=== PATIENT | female | born 1960 | race Caucasian/White ===

== ENCOUNTER 2023-04-02 10:58 | Outpatient (AMB) | payer BC, SELFPAY ==
--- NOTE | 2023-04-02 11:05 | MHC.OFFVIS ---
Intake Vital Signs 04/02/23 11:06 Height 5 ft 4 in Weight 226 lb 10.163 oz BMI 38.9 BP 124/78 Blood Pressure Location Rt brachial Position Sitting Pulse 67 Pulse Source Pulse Oximeter Temp 97.9 F Temp Source Skin Pulse Oximetry (%) 97 Intake Visit Reasons: Arthritis Intake Note: New pt presents today for consult. Previously seen by G. Was taking xeljanz but ran out some time in January. Needs new rx Clinical Appeals Auditor Required: No Accompanied by: Spouse Alexander Allergies etanercept [From Enbrel] Adverse Reaction (Intermediate, Verified 04/02/23 11:08) Depression Latex, Natural Rubber Adverse Reaction (Intermediate, Verified 04/02/23 11:08) Rash Medication List - Last Reconciled 04/02/23 by Fredrick Hill MD acetaminophen (Tylenol Extra Strength) 500 mg PO Q6H PRN tofacitinib (Xeljanz) 5 mg PO BID HPI HPI Comments History of Present Illness Details This is a 62-year-old female with a past medical history of seropositive rheumatoid arthritis who presents as a new patient. Her previous before school babysitter left the practice. Patient had been on Xeljanz since 2017 with good control of her RA. She was last prescribed Xeljanz about 10 months ago. Patient did not take Xeljanz since November of 2022 and had been using only 1 tablet daily for a few months before that. She is having recurring pain swelling and stiffness in her hands and wrists as well as her ankles. She has history of right breast cancer diagnosed 1999, she had a right mastectomy followed by chemotherapy, she also took another medication for 5 years. As far as she knows she is breast cancer free. She gets regular mammograms and they have been unremarkable. She states that she has had a right upper extremity deformity since do to a injury [facility] Medical History (Updated 04/02/23 @ 11:46 by Fredrick Hill MD) Anemia Cervical radiculopathy Disorder of rotator cuff Inflammatory polyarthropathy Localized primary osteoarthritis Primary malignant neoplasm of female breast Sleep disorder Surgical History History of lumbar fusion Family History Mother Arthritis Diabetes Brother Rheumatoid arthritis Coronary arteriosclerosis Father Prostate cancer Sister Cellulitis Social History Household Members: None Alcohol intake: current Alcohol intake frequency: holidays/special occasions only Patient Tobacco Use Status: Never used Tobacco Current occupational status: employed 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 Female Reproductive History Menstrual Total pregnancies: 2 Number of Living Children: 2 Review of Systems GI Reports constipation Musc Reports arthralgias, Reports joint swelling and Reports stiffness Physical Exam Vital Signs: Last Vital Signs Temp 97.9 F 04/02/23 11:06 Pulse 67 04/02/23 11:06 BP 124/78 04/02/23 11:06 Pulse Ox 97 04/02/23 11:06 BMI result Body Mass Index 38.9 Const General: cooperative, healthy appearing and comfortable Nutritional Appearance: obese morbidly obese Orientation/consciousness: patient oriented x3 Limitations: no limitations HEENT Head: Yes normocephalic and Yes atraumatic Resp Effort & Inspection: normal respiratory effort and able to speak in complete sentences Auscultation: clear to auscultation bilaterally Cardio Rate: regular rate Rhythm: regular rhythm Skin General skin exam: no rashes or lesions noted Neuro General: patient oriented x3 Extrem Other: Deformity and limited range of motion of her right shoulder, right elbow contracture. Right wrist tenderness and pain with full flexion and extension . Limited wrist extension Left wrist tenderness to palpation Diffuse finger puffiness without tenderness Left lateral ankle tenderness Assessment & Plan Assessment & Plan (1) Seropositive rheumatoid arthritis: Comment: RF + CCP + dx 2011 MTX + HCQ 2011 Relapsed in 10/2015 SSZ added without improvement LEF + MTX 2016 partially effective Enbrel 05/2017 effective. Stopped due to severe depression 2017 Xeljanz 07/2018 effective Code(s): M05.9 - Rheumatoid arthritis with rheumatoid factor, unspecified Plan: This is a 62-year-old female with seropositive rheumatoid arthritis who presents as a new patient. Her previous before school babysitter left the practice. Patient's rheumatoid arthritis was well controlled on Xeljanz since 2018. She ran out of Xeljanz as her before school babysitter left the practice. Today patient is having multiple joints with synovitis. Need to restart Xeljanz. Will start prior authorization for Xeljanz 5 mg Twice daily Check labs today and before next visit in 3 months (2) High risk medication use: Code(s): Z79.899 - Other termite treater helper (current) drug therapy Plan: Discussed the black box warning of Xeljanz. Discussed the mildly increased risks of malignancy and cardiovascular events with Xeljanz. Patient is aware of the risk and agrees to proceed. Will continue with Xeljanz Plan I spent 47 minutes reviewing patient's chart, evaluating patient, ordering diagnostic workup, counseling patient and documenting in the chart Orders: Orders Comprehensive Met. Panel Today M05.9 - Rheumatoid arthritis with rheumatoid factor, unspecified C Reactive Protein Today M05.9 - Rheumatoid arthritis with rheumatoid factor, unspecified Lipid Panel Today E78.5 - Hyperlipidemia, unspecified Complete Blood Count Auto Diff Today M05.9 - Rheumatoid arthritis with rheumatoid factor, unspecified Erythrocyte Sedimentation Rate Today M05.9 - Rheumatoid arthritis with rheumatoid factor, unspecified Immunofixation Pnl, Serum Today M05.9 - Rheumatoid arthritis with rheumatoid factor, unspecified Protein Electrophoresis, Serum Today M05.9 - Rheumatoid arthritis with rheumatoid factor, unspecified Hepatitis A,B,C Profile Today Z11.59 - Encounter for screening for other viral diseases T Spot TB Today Z11.7 - Encounter for testing for latent tuberculosis infection Comprehensive Met. Panel 3 Months M05.9 - Rheumatoid arthritis with rheumatoid factor, unspecified C Reactive Protein 3 Months M05.9 - Rheumatoid arthritis with rheumatoid factor, unspecified Complete Blood Count Auto Diff 3 Months M05.9 - Rheumatoid arthritis with rheumatoid factor, unspecified Erythrocyte Sedimentation Rate 3 Months M05.9 - Rheumatoid arthritis with rheumatoid factor, unspecified Coding Level of Care Code New Pt Level 4 (73550) Diagnoses Seropositive rheumatoid arthritis M05.9 High risk medication use Z79.899
[2023-04-02 11:06] VITALS: BP 124/78; PULSE 67; TEMP 36.6; O2SAT 97; BMI 38.9
== END 2023-04-02 11:38 | disposition home or self-care (01) ==
PROVIDERS: Visit Provider Student in an Organized Health Care Education/Training Program
DX: M05.79 Rheumatoid arthritis with rheumatoid factor of multiple sites without organ or systems involvement (principal); Z79.899 Other long term (current) drug therapy
CPT/HCPCS: 99204

== ENCOUNTER → 2023-04-02 10:58 | Outpatient (BNVA) | payer SELFPAY | PROVIDERS: Visit Provider Student in an Organized Health Care Education/Training Program ==

== ENCOUNTER 2023-06-19 09:59 | Outpatient (AMB) | payer BC, SELFPAY ==
[2023-06-19 10:30] VITALS: BP 122/76; PULSE 87; TEMP 36.6; O2SAT 97; BMI 38.4
--- NOTE | 2023-06-19 10:30 | MHC.OFFVIS ---
Intake Vital Signs 06/19/23 10:30 Height 5 ft 4 in Weight 223 lb 8.78 oz BMI 38.4 BP 122/76 Blood Pressure Location Rt brachial Position Sitting Pulse 87 Pulse Source Pulse Oximeter Temp 97.9 F Temp Source Skin Pulse Oximetry (%) 97 Intake Visit Reasons: RA Intake Note: Pt seen today for RA follow up and test results. States arthritis is getting bad. Reports neurosurgeon Dr Jie Franz in [facility] mentioned arthritis in her back. She c/o low back pain Care Giver Required: No Accompanied by: Self / Same As Patient Allergies etanercept [From Enbrel] Adverse Reaction (Intermediate, Verified 06/19/23 10:32) Depression Latex, Natural Rubber Adverse Reaction (Intermediate, Verified 06/19/23 10:32) Rash Medication List - Last Reconciled 06/19/23 by Fredrick Hill MD acetaminophen (Tylenol Extra Strength) 500 mg PO Q6H PRN Xeljanz (tofacitinib) 5 mg PO BID NS HPI HPI Comments History of Present Illness Details 62-year-old female with seropositive RA returns for follow-up. Xeljanz was recently approved but patient has not started it yet. She states that she gets it through a pharmacy through her employer called [employer] she continues to have multiple joint pain especially in her left hand and wrist. Initial history: This is a 62-year-old female with a past medical history of seropositive rheumatoid arthritis who presents as a new patient. Her previous software development project manager left the practice. Patient had been on Xeljanz since 2018 with good control of her RA. She was last prescribed Xeljanz about 10 months ago. Patient did not take Xeljanz since November of 2022 and had been using only 1 tablet daily for a few months before that. She is having recurring pain swelling and stiffness in her hands and wrists as well as her ankles. She has history of right breast cancer diagnosed 1999, she had a right mastectomy followed by chemotherapy, she also took another medication for 5 years. As far as she knows she is breast cancer free. She gets regular mammograms and they have been unremarkable. She states that she has had a right upper extremity deformity since do to a injury [facility] Medical History Disorder of rotator cuff Sleep disorder Cervical radiculopathy Localized primary osteoarthritis Inflammatory polyarthropathy Primary malignant neoplasm of female breast Anemia Surgical History H/O mastectomy History of lumbar fusion Family History Mother Arthritis Diabetes Brother Rheumatoid arthritis Coronary arteriosclerosis Father Prostate cancer Sister Cellulitis Social History Household Members: None Alcohol intake: current Alcohol intake frequency: holidays/special occasions only Patient Tobacco Use Status: Never used Tobacco Current occupational status: employed 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 Review of Systems Musc Reports arthralgias, Reports joint swelling and Reports stiffness Physical Exam Vital Signs: Last Vital Signs Temp 97.9 F 06/19/23 10:30 Pulse 87 06/19/23 10:30 BP 122/76 06/19/23 10:30 Pulse Ox 97 06/19/23 10:30 BMI result Body Mass Index 38.4 Const General: cooperative, healthy appearing and comfortable Nutritional Appearance: obese morbidly obese Orientation/consciousness: patient oriented x3 Limitations: no limitations HEENT Head: Yes normocephalic and Yes atraumatic Resp Effort & Inspection: normal respiratory effort and able to speak in complete sentences Cardio Rate: regular rate Rhythm: regular rhythm Skin General skin exam: no rashes or lesions noted Neuro General: patient oriented x3 Extrem Other: Deformity and limited range of motion of her right shoulder, right elbow contracture. Right wrist tenderness and pain with full flexion and extension . Limited wrist extension Left wrist swelling and tenderness to palpation Diffuse finger puffiness without tenderness Left lateral ankle tenderness Assessment & Plan Assessment & Plan (1) Seropositive rheumatoid arthritis: Comment: RF + CCP + dx 2011 MTX + HCQ 2011 Relapsed in 10/2015 SSZ added without improvement LEF + MTX 2016 partially effective Enbrel 05/2017 effective. Stopped due to severe depression 2017 Xeljanz 07/2018 effective Code(s): M05.9 - Rheumatoid arthritis with rheumatoid factor, unspecified Plan: This is a 62-year-old female with seropositive rheumatoid arthritis who presents as a new patient. Her previous software development project manager left the practice. Patient's rheumatoid arthritis was well controlled on Xeljanz since 2018. She ran out of Xeljanz as her software development project manager left the practice. Today patient is having multiple joints with synovitis. Xeljanz was just approved. Advised patient to start Xeljanz as soon as possible. Infectious screening: Hepatitis panel and T spot -ve 2022 Follow-up in 4 months (2) High risk medication use: Code(s): Z79.899 - Other group home (current) drug therapy Plan: Discussed the black box warning of Xeljanz. Discussed the mildly increased risks of malignancy and cardiovascular events with Xeljanz. Patient is aware of the risk and agrees to proceed. Will continue with Xeljanz Plan I spent 27 minutes reviewing patient's chart, evaluating patient, counseling patient and documenting in the chart Medications: Changed From tofacitinib (Xeljanz) 5 mg PO BID 60 tabs 2RF To Xeljanz (tofacitinib) 5 mg PO BID 60 tabs 3RF NS Coding Level of Care Code Est Pt Level 4 (17022) Diagnoses Seropositive rheumatoid arthritis M05.9 High risk medication use Z79.899
== END 2023-06-19 11:08 | disposition home or self-care (01) ==
LOC: HO.RHE 09:59
PROVIDERS: Visit Provider Student in an Organized Health Care Education/Training Program
DX: M05.79 Rheumatoid arthritis with rheumatoid factor of multiple sites without organ or systems involvement (principal); Z79.622 Long term (current) use of Janus kinase inhibitor
CPT/HCPCS: 99214

== ENCOUNTER → 2023-06-19 09:59 | Outpatient (BNVA) | payer BC, SELFPAY | PROVIDERS: Visit Provider Student in an Organized Health Care Education/Training Program ==

== ENCOUNTER 2023-11-06 09:27 | Outpatient (AMB) | payer BC, SELFPAY ==
--- NOTE | 2023-11-06 09:29 | MHC.OFFVIS ---
Intake Vital Signs 11/06/23 09:30 Height 5 ft 4 in Weight 227 lb 15.327 oz BMI 39.1 BP 132/84 Blood Pressure Location Lt brachial Position Sitting Pulse 96 Pulse Source Pulse Oximeter Intake Visit Reasons: ra Intake Note: Patient last seen 06/19/23 presents today for follow up. Boiling Off Winder Required: No Accompanied by: Self / Same As Patient Allergies etanercept [From Enbrel] Adverse Reaction (Intermediate, Verified 11/06/23 09:31) Depression Latex, Natural Rubber Adverse Reaction (Intermediate, Verified 11/06/23 09:31) Rash Medication List - Last Reconciled 11/06/23 by Fredrick Hill MD acetaminophen (Tylenol Extra Strength) 500 mg PO Q6H PRN tofacitinib (Xeljanz) 5 mg PO DAILY HPI HPI Comments History of Present Illness Details 62-year-old female with seropositive RA returns for follow-up. She has been taking Xeljanz only once daily not twice daily as prescribed. She has been doing very well on 1 tab daily. She took it twice daily a few days when it was very called through the winter. She is doing well today with no complaints. No infections over the fall and winter. She has received the Shingrix vaccine in the past Initial history: This is a 62-year-old female with a past medical history of seropositive rheumatoid arthritis who presents as a new patient. Her previous environmental aide left the practice. Patient had been on Xeljanz since 2018 with good control of her RA. She was last prescribed Xeljanz about 10 months ago. Patient did not take Xeljanz since November of 2022 and had been using only 1 tablet daily for a few months before that. She is having recurring pain swelling and stiffness in her hands and wrists as well as her ankles. She has history of right breast cancer diagnosed 1999, she had a right mastectomy followed by chemotherapy, she also took another medication for 5 years. As far as she knows she is breast cancer free. She gets regular mammograms and they have been unremarkable. She states that she has had a right upper extremity deformity since do to a injury [facility] Medical History Disorder of rotator cuff Sleep disorder Cervical radiculopathy Localized primary osteoarthritis Inflammatory polyarthropathy Primary malignant neoplasm of female breast Anemia Surgical History H/O mastectomy History of lumbar fusion Family History Mother Arthritis Diabetes Brother Rheumatoid arthritis Coronary arteriosclerosis Father Prostate cancer Sister Cellulitis Social History Household Members: None Alcohol intake: current Alcohol intake frequency: holidays/special occasions only Patient Tobacco Use Status: Never used Tobacco Current occupational status: employed 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 Review of Systems Musc Denies arthralgias, Denies joint swelling and Denies stiffness Physical Exam Vital Signs: Last Vital Signs Pulse 96 11/06/23 09:30 BP 132/84 11/06/23 09:30 BMI result Body Mass Index 39.1 Const General: cooperative, healthy appearing and comfortable Nutritional Appearance: obese morbidly obese Orientation/consciousness: patient oriented x3 Limitations: no limitations HEENT Head: Yes normocephalic and Yes atraumatic Resp Effort & Inspection: normal respiratory effort and able to speak in complete sentences Auscultation: clear to auscultation bilaterally Cardio Rate: regular rate Rhythm: regular rhythm Skin General skin exam: no rashes or lesions noted Neuro General: patient oriented x3 Extrem Other: Deformity and limited range of motion of her right shoulder, right elbow contracture. No active synovitis today No tender joints Diffuse finger puffiness without tenderness No ankle tenderness Negative MTP squeeze test bilaterally Assessment & Plan Assessment & Plan (1) Seropositive rheumatoid arthritis: Comment: RF + CCP + dx 2011 MTX + HCQ 2011 Relapsed in 10/2015 SSZ added without improvement LEF + MTX 2016 partially effective Enbrel 05/2017 effective. Stopped due to severe depression 2017 Xeljanz 07/2018 effective Code(s): M05.9 - Rheumatoid arthritis with rheumatoid factor, unspecified Plan: This is a 62-year-old female with seropositive rheumatoid arthritis who presents for follow-up. Doing well. She is on Xeljanz 5 mg once daily. Continue with Xeljanz 5 mg once daily. Infectious screening: Hepatitis panel and T spot -ve 2022 Labs before next visit in 4 months (2) High risk medication use: Code(s): Z79.899 - Other long distance operator (current) drug therapy Plan: Discussed the black box warning of Xeljanz. Discussed the mildly increased risks of malignancy and cardiovascular events with Xeljanz. Patient is aware of the risk. Will continue with Xeljanz Plan I spent 27 minutes reviewing patient's chart, evaluating patient, ordering diagnostic workup, counseling patient and documenting in the chart Orders: Orders Erythrocyte Sedimentation Rate 4 Months M05.9 - Rheumatoid arthritis with rheumatoid factor, unspecified Complete Blood Count Auto Diff 4 Months M05.9 - Rheumatoid arthritis with rheumatoid factor, unspecified Comprehensive Met. Panel 4 Months M05.9 - Rheumatoid arthritis with rheumatoid factor, unspecified C Reactive Protein 4 Months M05.9 - Rheumatoid arthritis with rheumatoid factor, unspecified Medications: Changed From Xeljanz (tofacitinib) 5 mg PO BID 60 tabs 3RF NS To tofacitinib (Xeljanz) 5 mg PO DAILY Coding Level of Care Code Est Pt Level 4 (72414) Diagnoses Seropositive rheumatoid arthritis M05.9 High risk medication use Z79.899
[2023-11-06 09:30] VITALS: BP 132/84; PULSE 96; BMI 39.1
== END 2023-11-06 10:06 | disposition home or self-care (01) ==
PROVIDERS: PCP Family Medicine; Visit Provider Student in an Organized Health Care Education/Training Program
DX: M05.79 Rheumatoid arthritis with rheumatoid factor of multiple sites without organ or systems involvement (principal); Z79.899 Other long term (current) drug therapy
CPT/HCPCS: 99214

== ENCOUNTER → 2023-11-06 09:27 | Outpatient (BNVA) | payer BC, SELFPAY | PROVIDERS: PCP Family Medicine; Visit Provider Student in an Organized Health Care Education/Training Program ==

== ENCOUNTER 2024-03-02 09:02 | Outpatient (AMB) | payer BC, SELFPAY ==
[2024-03-02 09:21] VITALS: BP 138/76; PULSE 81; O2SAT 96; BMI 38.9
--- NOTE | 2024-03-02 09:21 | MHC.OFFVIS ---
Vital Signs 03/02/24 09:21 Height 5 ft 4 in Weight 226 lb 10.163 oz BMI 38.9 BP 138/76 Blood Pressure Location Lt brachial Position Sitting Pulse 81 Pulse Source Pulse Oximeter Pulse Oximetry (%) 96 Oxygen Delivery Method Room Air Intake Visit Reasons: RA/LM Allergies etanercept [From Enbrel] Adverse Reaction (Intermediate, Verified 03/02/24 09:25) Depression Latex, Natural Rubber Adverse Reaction (Intermediate, Verified 03/02/24 09:25) Rash Medication List - Last Reconciled 03/02/24 by Fredrick Hill MD acetaminophen (Tylenol Extra Strength) 500 mg PO Q6H PRN Xeljanz (tofacitinib) 5 mg PO DAILY NS HPI Comments Details: 62-year-old female with seropositive RA returns for follow-up. She is on Xeljanz 5 mg 1 tab daily. She states that her RA is doing well overall. Has not had any joint swelling however been having pain in her right lower back that radiates down her right lower extremity, worse with walking. Patient works in a [employer] and is on her feet for about 8 hours in the day. She has known degenerative disc disease of her spine and she had L-spine surgery in the past. She does home exercises that she learned from PT and is not interested in PT referral. Initial history: This is a 62-year-old female with a past medical history of seropositive rheumatoid arthritis who presents as a new patient. Her previous mileage clerk left the practice. Patient had been on Xeljanz since 2018 with good control of her RA. She was last prescribed Xeljanz about 10 months ago. Patient did not take Xeljanz since November of 2022 and had been using only 1 tablet daily for a few months before that. She is having recurring pain swelling and stiffness in her hands and wrists as well as her ankles. She has history of right breast cancer diagnosed 1999, she had a right mastectomy followed by chemotherapy, she also took another medication for 5 years. As far as she knows she is breast cancer free. She gets regular mammograms and they have been unremarkable. She states that she has had a right upper extremity deformity since do to a injury [facility] Medical History Disorder of rotator cuff Sleep disorder Cervical radiculopathy Localized primary osteoarthritis Inflammatory polyarthropathy Primary malignant neoplasm of female breast Anemia Surgical History H/O mastectomy History of lumbar fusion Family History Mother Arthritis Diabetes Brother Rheumatoid arthritis Coronary arteriosclerosis Father Prostate cancer Sister Cellulitis Social History Household Members: None Alcohol intake: current Alcohol intake frequency: holidays/special occasions only Patient Tobacco Use Status: Never used Tobacco Current occupational status: employed 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 Review of Systems Musc Reports back pain, Denies arthralgias, Denies joint swelling, Reports radiating pain into limb and Denies stiffness Physical Exam Vital Signs: Last Vital Signs Pulse 81 03/02/24 09:21 BP 138/76 03/02/24 09:21 Pulse Ox 96 03/02/24 09:21 Oxygen Delivery Method Room Air 03/02/24 09:21 BMI result Body Mass Index 38.9 Const General: cooperative, healthy appearing and comfortable Nutritional Appearance: obese morbidly obese Orientation/consciousness: patient oriented x3 Limitations: no limitations HEENT Head: Yes normocephalic and Yes atraumatic Resp Effort & Inspection: normal respiratory effort and able to speak in complete sentences Auscultation: clear to auscultation bilaterally Cardio Rate: regular rate Rhythm: regular rhythm Skin General skin exam: no rashes or lesions noted Neuro General: patient oriented x3 Extrem Other: Deformity and limited range of motion of her right shoulder, right elbow contracture. No active synovitis today No tender joints Diffuse finger puffiness without tenderness Bilateral knee crepitus Positive straight leg raise test on the right No ankle tenderness Negative MTP squeeze test bilaterally Assessment & Plan Assessment & Plan (1) Seropositive rheumatoid arthritis: Comment: RF + CCP + dx 2011 MTX + HCQ 2011 Relapsed in 10/2015 SSZ added without improvement LEF + MTX 2016 partially effective Enbrel 05/2017 effective. Stopped due to severe depression 2018 Xeljanz 07/2018 effective Code(s): M05.9 - Rheumatoid arthritis with rheumatoid factor, unspecified Category: Medical Plan: This is a 62-year-old female with seropositive rheumatoid arthritis who presents for follow-up. Doing well. She is on Xeljanz 5 mg once daily. Continue with Xeljanz 5 mg once daily. Infectious screening: Hepatitis panel and T spot -ve 2022 Labs today and before next visit in 4 months (2) High risk medication use: Code(s): Z79.899 - Other group home (current) drug therapy Category: Medical Plan: Discussed the black box warning of Xeljanz. Discussed the mildly increased risks of malignancy and cardiovascular events with Xeljanz. Patient is aware of the risk. Will continue with Xeljanz Plan I spent 27 minutes reviewing patient's chart, evaluating patient, ordering diagnostic workup, counseling patient and documenting in the chart Orders: Orders Complete Blood Count Auto Diff 4 Months M05.9 - Rheumatoid arthritis with rheumatoid factor, unspecified, Z79.899 - Other group home (current) drug therapy Erythrocyte Sedimentation Rate 4 Months M05.9 - Rheumatoid arthritis with rheumatoid factor, unspecified, Z79.899 - Other intermediate card tender (current) drug therapy Comprehensive Met. Panel 4 Months M05.9 - Rheumatoid arthritis with rheumatoid factor, unspecified, Z79.899 - Other intermediate card tender (current) drug therapy C Reactive Protein 4 Months M05.9 - Rheumatoid arthritis with rheumatoid factor, unspecified, Z79.899 - Other group home (current) drug therapy Coding Level of Care Code Est Pt Level 4 (24182) Diagnoses Seropositive rheumatoid arthritis M05.9 High risk medication use Z79.899
== END 2024-03-02 09:44 | disposition home or self-care (01) ==
PROVIDERS: PCP Family Medicine; Visit Provider Student in an Organized Health Care Education/Training Program
DX: M05.79 Rheumatoid arthritis with rheumatoid factor of multiple sites without organ or systems involvement (principal); Z79.899 Other long term (current) drug therapy
CPT/HCPCS: 99214

== ENCOUNTER → 2024-03-02 09:02 | Outpatient (BNVA) | payer BC, SELFPAY | PROVIDERS: PCP Family Medicine; Visit Provider Student in an Organized Health Care Education/Training Program ==

== ENCOUNTER 2024-07-06 08:09 | Outpatient (AMB) | payer BC, SELFPAY ==
--- NOTE | 2024-07-06 08:12 | A.OFFVIS_ITS ---
Vital Signs 07/06/24 08:14 Height 5 ft 4 in Weight 224 lb 10.417 oz BMI 38.6 BP 124/80 Blood Pressure Location Lt brachial Position Sitting Pulse 79 Pulse Source Pulse Oximeter Pulse Oximetry (%) 97 Oxygen Delivery Method Room Air Intake Visit Reasons: RA/lm Intake Note: Patient presents for RA. Allergies etanercept [From Enbrel] Adverse Reaction (Intermediate, Verified 07/06/24 08:14) Depression Latex, Natural Rubber Adverse Reaction (Intermediate, Verified 07/06/24 08:14) Rash Medication List - Last Reconciled 07/06/24 by Fredrick Hill MD acetaminophen (Tylenol Extra Strength) 500 mg PO Q6H PRN Xeljanz (tofacitinib) 5 mg PO DAILY NS HPI Comments Details: 63-year-old female with seropositive RA returns for follow-up. She is on Xeljanz 5 mg 1 tab daily. She states that her RA is doing reasonably well overall. 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 She states that sometimes her left upper extremity gets painful and swollen at the end of the day. She would take Tylenol. Which helps. She generally takes Tylenol about 3-4 days a week. Denies any recent illnesses or fevers. Initial history: This is a 62-year-old female with a past medical history of seropositive rheumatoid arthritis who presents as a new patient. Her previous practice management consultant left the practice. Patient had been on Xeljanz since 2018 with good control of her RA. She was last prescribed Xeljanz about 10 months ago. Patient did not take Xeljanz since November of 2022 and had been using only 1 tablet daily for a few months before that. She is having recurring pain swelling and stiffness in her hands and wrists as well as her ankles. She has history of right breast cancer diagnosed 1999, she had a right mastectomy followed by chemotherapy, she also took another medication for 5 years. As far as she knows she is breast cancer free. She gets regular mammograms and they have been unremarkable. She states that she has had a right upper extremity deformity since do to a injury ON LICENSE OF [facility] Medical History Disorder of rotator cuff Sleep disorder Cervical radiculopathy Localized primary osteoarthritis Inflammatory polyarthropathy Primary malignant neoplasm of female breast Anemia Surgical History H/O mastectomy History of lumbar fusion Family History Mother Arthritis Diabetes Brother Rheumatoid arthritis Coronary arteriosclerosis Father Prostate cancer Sister Cellulitis Social History Household Members: None Alcohol intake: current Alcohol intake frequency: holidays/special occasions only Patient Tobacco Use Status: Never used Tobacco Current occupational status: employed 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 Review of Systems [facility] [place] Reports arthralgias, Reports joint swelling and Reports stiffness Physical Exam Vital Signs: Last Vital Signs Pulse 79 07/06/24 08:14 BP 124/80 07/06/24 08:14 Pulse Ox 97 07/06/24 08:14 Oxygen Delivery Method Room Air 07/06/24 08:14 BMI result Body Mass Index 38.6 Const General: cooperative, healthy appearing and comfortable Nutritional Appearance: obese morbidly obese Orientation/consciousness: patient oriented x3 Limitations: no limitations HEENT Head: Yes normocephalic and Yes atraumatic Resp Effort & Inspection: normal respiratory effort and able to speak in complete sentences Auscultation: clear to auscultation bilaterally Cardio Rate: regular rate Rhythm: regular rhythm Skin General skin exam: no rashes or lesions noted Neuro General: patient oriented x3 Extrem Other: Deformity and limited range of motion of her right shoulder, right elbow contracture. No active synovitis today No tender joints Left 5th PIP swelling and tenderness Left 2nd PIP tenderness without swelling No ankle tenderness Negative MTP squeeze test bilaterally Assessment & Plan Assessment & Plan (1) Seropositive rheumatoid arthritis: Comment: RF + CCP + dx 2011 MTX + HCQ 2011 Relapsed in 10/2015 SSZ added without improvement LEF + MTX 2016 partially effective Enbrel 05/2017 effective. Stopped due to severe depression 2017 Xeljanz 07/2018 effective Code(s): M05.9 - Rheumatoid arthritis with rheumatoid factor, unspecified Category: Medical Plan: This is a 62-year-old female with seropositive rheumatoid arthritis who presents for follow-up. She is on Xeljanz 5 mg once daily. In the past, patient declined taking it twice daily, she has done reasonably well over the years with only 5 mg once daily on exam today however she is having a couple of swollen and tender joints. Advised patient to increase her Xeljanz to twice daily for 2 weeks then go back to 5 mg daily Infectious screening: Hepatitis panel and T spot -ve 2022 Labs before next visit in 6 months (2) High risk medication use: Code(s): Z79.899 - Other retirement (current) drug therapy Category: Medical Plan: Discussed the black box warning of Xeljanz. Discussed the mildly increased risks of malignancy and cardiovascular events with Xeljanz. Patient is aware of the risk. Will continue with Xeljanz Plan I spent 27 minutes reviewing patient's chart, evaluating patient, ordering diagnostic workup, counseling patient and documenting in the chart Orders: Orders Complete Blood Count Auto Diff 6 Months M05.9 - Rheumatoid arthritis with rheumatoid factor, unspecified, Z79.899 - Other retirement (current) drug therapy Comprehensive Met. Panel 6 Months M05.9 - Rheumatoid arthritis with rheumatoid factor, unspecified, Z79.899 - Other computer terminal operator (current) drug therapy C Reactive Protein 6 Months M05.9 - Rheumatoid arthritis with rheumatoid factor, unspecified, Z79.899 - Other computer terminal operator (current) drug therapy Erythrocyte Sedimentation Rate 6 Months M05.9 - Rheumatoid arthritis with rheumatoid factor, unspecified, Z79.899 - Other retirement (current) drug therapy Hepatitis A,B,C Profile 6 Months Z11.59 - Encounter for screening for other viral diseases T Spot TB 6 Months Z11.7 - Encounter for testing for latent tuberculosis infection Coding Level of Care Code Est Pt Level 4 (99563) Complex EM visit Add On G2211 Diagnoses Seropositive rheumatoid arthritis M05.9 High risk medication use Z79.899
[2024-07-06 08:14] VITALS: BP 124/80; PULSE 79; O2SAT 97; BMI 38.6
== END 2024-07-06 08:45 | disposition home or self-care (01) ==
LOC: HO.RHE 08:10
PROVIDERS: PCP Family Medicine; Visit Provider Student in an Organized Health Care Education/Training Program
DX: M05.79 Rheumatoid arthritis with rheumatoid factor of multiple sites without organ or systems involvement (principal); Z79.899 Other long term (current) drug therapy
CPT/HCPCS: 99214

== ENCOUNTER → 2024-07-06 08:09 | Outpatient (BNVA) | payer BC, SELFPAY | PROVIDERS: PCP Family Medicine; Visit Provider Student in an Organized Health Care Education/Training Program ==

== ENCOUNTER 2025-01-04 08:05 | Outpatient (AMB) | payer BC, SELFPAY ==
--- NOTE | 2025-01-04 08:07 | MHC.OFFVIS ---
Vital Signs 01/04/25 08:13 Height 5 ft 4 in Weight 217 lb 9.54 oz BMI 37.3 BP 152/100 H Blood Pressure Location Lt brachial Position Sitting Pulse 87 Pulse Source Pulse Oximeter Pulse Oximetry (%) 98 Oxygen Delivery Method Room Air Intake Visit Reasons: Ra Intake Note: Patient presents for RA follow up. Allergies etanercept [From Enbrel] Adverse Reaction (Intermediate, Verified 01/04/25 08:12) Depression Latex, Natural Rubber Adverse Reaction (Intermediate, Verified 01/04/25 08:12) Rash Medication List - Last Reconciled 01/04/25 by Kinga Mcgill MD acetaminophen (Tylenol Extra Strength) 500 mg PO Q6H PRN Xeljanz (tofacitinib) 5 mg PO DAILY NS HPI Comments Details: Patient is a 64-year-old female with preDM, hypertension, Lumbar degenerative disease s/p surgery, polyarticular OA and seropositive rheumatoid arthritis here today for follow up Interval History: Patient last seen 07/06/[address] Hill. At that time she was on Xeljanz 5 mg daily reporting that her RA was doing reasonably well however she had a few swollen and tender joints on exam for which she was advised to increase Xeljanz to twice a day for 2 weeks and then go back to daily. Today, She reports chronic pain in her back and knees for which she takes Tylenol Hands improved on the short course of increase in Xeljanz Rheumatologic History: RF + CCP + dx 2011 MTX + HCQ 2011. Mtx associated with significant fatigue Relapsed in 10/2015 SSZ added without improvement LEF + MTX 2016 partially effective Enbrel 05/2017 effective. Stopped due to severe depression 2017 Xeljanz 07/2018 effective Initial history: This is a 62-year-old female with a past medical history of seropositive rheumatoid arthritis who presents as a new patient. 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 Patient had been on Xeljanz since 2018 with good control of her RA. She was last prescribed Xeljanz about 10 months ago. Patient did not take Xeljanz since November of 2022 and had been using only 1 tablet daily for a few months before that. She is having recurring pain swelling and stiffness in her hands and wrists as well as her ankles. She has history of right breast cancer diagnosed 1999, she had a right mastectomy followed by chemotherapy, she also took another medication for 5 years. As far as she knows she is breast cancer free. She gets regular mammograms and they have been unremarkable. She states that she has had a right upper extremity deformity since do to a injury Current Rheumatology Medication(s): Xeljanz 5mg daily [facility] Medical History Disorder of rotator cuff Sleep disorder Cervical radiculopathy Localized primary osteoarthritis Inflammatory polyarthropathy Primary malignant neoplasm of female breast Anemia Surgical History H/O mastectomy History of lumbar fusion Family History Mother Arthritis Diabetes Brother Rheumatoid arthritis Coronary arteriosclerosis Father Prostate cancer Sister Cellulitis Social History Household Members: None Alcohol intake: current Alcohol intake frequency: holidays/special occasions only Patient Tobacco Use Status: Never used Tobacco Current occupational status: employed 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 Review of Systems Const Details: Review of Systems Constitutional: Denies fever, chills, weight loss ENT: Denies vision changes, eye pain or eye redness, dental caries, dry mouth GI: Denies nausea, vomiting, diarrhea, abdominal pain, change in BM Pulm: Denies SOB, ZAPATA, hemoptysis, wheezing Cards: Denies chest pain, palpitations Skin: Denies Raynaud's, rash, nail changes, photosensitivity, PRICK STITCHER: Denies headaches, weakness, paresthesias, recurrent falls MSK: as per HPI All other systems reviewed and are unremarkable except noted above Physical Exam Vital Signs: Last Vital Signs Pulse 87 01/04/25 08:13 BP 152/100 H 01/04/25 08:13 Pulse Ox 98 01/04/25 08:13 Oxygen Delivery Method Room Air 01/04/25 08:13 BMI result Body Mass Index 37.3 Vital signs reviewed Physical Examination CONSTITUITIONAL Patient alert and cooperative. Well appearing and in no apparent painful distress HEENT Conjunctiva and sclera clear. ?Pupils equal round and reactive to light. ?No lymphadenopathy. ? CHEST/RESPIRATORY SYSTEM Normal respiratory effort and able to speak in complete sentences. ?Clear to auscultation bilaterally. ?No crackles, rales, rhonchi, wheezes heard. CARDIAC SYSTEM Regular rate and rhythm. ?S1 and S2 heard no murmurs. ?Radial pulses intact bilaterally MSK Hands: ?Able to make a fist. Synovial hypertrophy noted to the right 2nd and 3rd MCPs without TTP. Hands look a bit puffy but patient states that is her normal Wrists: ?Full range of motion at the wrists without pain. ?No tenderness to palpation or synovitis noted to the wrists. Elbows: Decreased ROM of the right elbow about 80 degrees of motion. Normal ROM to the left elbow Shoulders: Decreased ROM to bilateral shoulders in the anterior and lateral planes. Right worse than left ( defect). Right has about 80 degrees of abduction, left about 90 degrees. No TTP Knees: ?Full range of motion. ?No tenderness, swelling, increased warmth or erythema.?Crepitations Ankles: Full range of motion. ?No tenderness, swelling, increased warmth or erythema.? Feet: ?Negative squeeze test. ?No tenderness to palpation or swelling of the MTPs. Tender points:?No tenderness to palpation of the bilateral trapezius, supraspinatus, greater trochanters, anterior costochondral junctions, bilateral gluteal areas, bilateral suboccipital muscle insertions SKIN Skin intact without rashes. Results Reviewed Results Reviewed: [facility] results reviewed Done 12/21/2024 WBC 6.5 HB 12.9 Platelets 461 Creatinine 0.47 EGFR 108 AST/ALT Hepatitis a/B/C negative T spot negative ESR 26 CRP <1 Assessment & Plan Assessment & Plan (1) Seropositive rheumatoid arthritis: Comment: RF + CCP + dx 2011 MTX + HCQ 2011 Relapsed in 10/2015 SSZ added without improvement LEF + MTX 2016 partially effective Enbrel 05/2017 effective. Stopped due to severe depression 2017 Xeljanz 07/2018 effective Code(s): M05.9 - Rheumatoid arthritis with rheumatoid factor, unspecified Category: Medical Plan: #Seropositive RA Patient is a 64-year-old female with seropositive rheumatoid arthritis here today for follow up. Currently in remission. Continue medications BP elevated today because patient has not take her BP meds as yet. Does not recall the name of the med, will bring it next time for our records Plan - Xeljanz 5mg daily - RTC 6 months - Labs before visit: CBC, CMP, ESR, CRP (2) Primary osteoarthritis of both knees: Code(s): M17.0 - Bilateral primary osteoarthritis of knee Plan: #Bilateral Knee OA Patient complaining of bilateral knee pain, known OA (XRs not seen) Recommending topical diclofenac 1% 4 times a day Advised that patient can get it OTC (3) Long-term current use of tofacitinib: Code(s): Z79.622 - adjunct faculty for medical terminology (current) use of Janus kinase inhibitor Plan: #Long-term Use of JACQUELINE inhibitor : Xeljanz Discussed with patient the benefits and risks of JACQUELINE inhibitors for the management of the rheumatic condition Benefits include reduce pain, maintenance of remission and reduction of flares Risks include thromboembolic events, skin cancer and nonmelanoma skin cancers, other forms of cancer, cardiovascular alcohol and mortality Advise patient that they are to hold the medication and for up to 1 week after a febrile illness or an open skin wound Plan I spent 32 minutes reviewing the record and labs, taking a history, examining the patient, discussing the treatment plan, ordering diagnostic work up and documenting in the medical record Orders: Orders Comprehensive Met. Panel 6 Months M05.9 - Rheumatoid arthritis with rheumatoid factor, unspecified C Reactive Protein 6 Months M05.9 - Rheumatoid arthritis with rheumatoid factor, unspecified Complete Blood Count Auto Diff 6 Months M05.9 - Rheumatoid arthritis with rheumatoid factor, unspecified Erythrocyte Sedimentation Rate 6 Months M05.9 - Rheumatoid arthritis with rheumatoid factor, unspecified Medications: New [compression stockings] As directed 2 ea 0RF Bilateral leg edema R22.43 - Localized swelling, mass and lump, lower limb, bilateral Refilled Xeljanz (tofacitinib) 5 mg PO DAILY 30 tabs 6RF NS M05.9 - Rheumatoid arthritis with rheumatoid factor, unspecified Coding Level of Care Code Est Pt Level 4 (46741) Complex EM visit Add On G2211 Diagnoses Seropositive rheumatoid arthritis M05.9 Primary osteoarthritis of both knees M17.0 Long-term current use of tofacitinib Z79.622
[2025-01-04 08:13] VITALS: BP 152/100; PULSE 87; O2SAT 98; BMI 37.3
--- OUTSIDE RECORDS SUMMARY | 2025-01-04 08:15 | XMS_ITS | Data Portability ---
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 A: Pt demonstrates ability to perform hip hinge without pain this visit upon achieving body awareness of tendency to substitute lumbar extension for hip extension on return to standing. Modifications of HEP expected to work better for pt. Skilled PT is reasonable and indicated to address exam findings and maximize safe pain-free level of function. Next visit: cont/review core stabilization exercises. ADL training. 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 new Treatments may include (as appropriate/as indicated): Therapeutic exercise/Neuromu scular Reeducation/Manu al Therapy/Therapeu tic Activities/Self- care management/Atten ded Electrical Stimulation/PRN modalities/dry needling/Gait Training/canalit h repositioning [email or web address] Not available 05/20/2022 09:05:03 05/23/2022 05/23/2022 Plan: *1-2 x/week decreasing frequency as tolerated for 4-8 weeks. 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 She demonstrates about 75% understanding and adherence to this in simulated work. Good response to manual therapy today. Skilled PT is reasonable and indicated to address exam findings and maximize safe pain-free level of function. Next visit: cont/review core stabilization exercises. ADL training. Small-ROM lower trunk rotations for days when more sore after work. 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 new Treatments may include (as appropriate/as indicated): Therapeutic exercise/Neuromu scular Reeducation/Manu al Therapy/Therapeu tic Activities/Self- care management/Atten ded Electrical Stimulation/PRN modalities/dry needling/Gait Training/canalit h repositioning [email or web address] Not available 05/23/2022 08:34:20 05/27/2022 05/27/2022 Plan: *1-2 x/week decreasing frequency as tolerated for 4-8 weeks. A: Unable to substantially practice occupational bending/reaching /lifting skills today d/t injury at home, but limited hip hinge practice shows pt still needs reinforcement on abdominal bracing to avoid anterior pelvic tilt. Good partial improvement in this with cue to avoid rocking forward to toes. Skilled PT is reasonable and indicated to address exam findings and maximize safe pain-free level of function. Next visit: cont/review core stabilization exercises. ADL training. Small-ROM lower trunk rotations for days when more sore after work. 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 new Treatments may include (as appropriate/as indicated): Therapeutic exercise/Neuromu scular Reeducation/Manu al Therapy/Therapeu tic Activities/Self- care management/Atten ded Electrical Stimulation/PRN modalities/dry needling/Gait Training/canalit h repositioning [email or web address] Not available 05/27/2022 08:27:34 05/30/2022 05/30/2022 Plan: *1-2 x/week decreasing frequency as tolerated for 4-8 weeks. A: Pt demonstrates appropriate and consistent awareness of aberrant/painful lumbar spine motion with bending and returning to standing. She is still inconsistent in maintaining lumbar stabilization in this movement, but with practice and further training may be expected to perform occupational bending and reaching without pain. Skilled PT is reasonable and indicated to address exam findings and maximize safe pain-free level of function. Next visit: cont/review core stabilization exercises. ADL training. Small-ROM lower trunk rotations for days when more sore after work. 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 new Treatments may include (as appropriate/as indicated): Therapeutic exercise/Neuromu scular Reeducation/Manu al Therapy/Therapeu tic Activities/Self- care management/Atten ded Electrical Stimulation/PRN modalities/dry needling/Gait Training/canalit h repositioning Not available 05/30/2022 09:44:53 06/03/2022 06/03/2022 Plan: *1-2 x/week decreasing frequency as tolerated for 4-8 weeks. A: Pt continues to improve body awareness and control of pelvic tilt, and may be able to achieve skill with more independent practice. Pt's report of financial concerns limiting followup scheduling at this time and may only be able to attend another 1-2 visits at this time. Skilled PT is reasonable and indicated to address exam findings and maximize safe pain-free level of function. Next visit: cont/review core stabilization exercises. ADL training. Small-ROM lower trunk rotations for days when more sore after work. 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 new Treatments may include (as appropriate/as indicated): Therapeutic exercise/Neuromu scular Reeducation/Manu al Therapy/Therapeu tic Activities/Self- care management/Atten ded Electrical Stimulation/PRN modalities/dry needling/Gait Training/canalit h repositioning [email or web address] Not available 06/03/2022 08:32:46 Plan of Treatment Reminders Order Date Submit Date Provider Last Modified By Organization Details Last Modified Time Details Appointments None record ed. Lab None record ed. Referral None record ed. Procedures None record ed. Surgeries None record ed. Imaging None record ed. Medication Orders None record ed. Patient TargetsNo targets recorded. Patient Instructions Encounter Date Encounter Id Patient Instructions Last Modified By Organization Details Last Modified Time 05/20/2022 [id number] Access Code: [email or web address] URL: [email or web address] Date: 04/11/2022 Prepared by: Jose R Meyers Exercises Neutral Curl Up with Straight Leg - 1 x daily - 7 x weekly - 3 sets - 10 reps added 04/15/22 Supine Bridge - 1 x daily - 7 x weekly - 1-2 sets - up to 3 minutes hold Supine March - 1 x daily - 7 x weekly - 1 sets - repeat up to 3 minutes Not available 05/20/2022 08:35:23 05/23/2022 [id number] Access Code: [email or web address] URL: [email or web address] Date: 04/11/2022 Prepared by: Jose R Meyers Exercises Neutral Curl Up with Straight Leg - 1 x daily - 7 x weekly - 3 sets - 10 reps added 04/15/22 Supine Bridge - 1 x daily - 7 x weekly - 1-2 sets - up to 3 minutes hold Supine March - 1 x daily - 7 x weekly - 1 sets - repeat up to 3 minutes [email or web address] Not available 05/23/2022 07:59:17 05/27/2022 [id number] Access Code: [email or web address] URL: [email or web address] Date: 04/11/2022 Prepared by: Jose R Meyers Exercises Neutral Curl Up with Straight Leg - 1 x daily - 7 x weekly - 3 sets - 10 reps added 04/15/22 Supine Bridge - 1 x daily - 7 x weekly - 1-2 sets - up to 3 minutes hold Supine March - 1 x daily - 7 x weekly - 1 sets - repeat up to 3 minutes [email or web address] Not available 05/27/2022 08:01:27 05/30/2022 [id number] Access Code: [email or web address] URL: [email or web address] Date: 04/11/2022 Prepared by: Jose R Meyers Exercises Neutral Curl Up with Straight Leg - 1 x daily - 7 x weekly - 3 sets - 10 reps added 04/15/22 Supine Bridge - 1 x daily - 7 x weekly - 1-2 sets - up to 3 minutes hold Supine March - 1 x daily - 7 x weekly - 1 sets - repeat up to 3 minutes [email or web address] Not available 05/30/2022 09:43:30 06/03/2022 [id number] Access Code: [email or web address] URL: [email or web address] Date: 04/11/2022 Prepared by: Jose R Meyers Exercises Neutral Curl Up with Straight Leg - 1 x daily - 7 x weekly - 3 sets - 10 reps added 04/15/22 Supine Bridge - 1 x daily - 7 x weekly - 1-2 sets - up to 3 minutes hold Supine March - 1 x daily - 7 x weekly - 1 sets - repeat up to 3 minutes [email or web address] Not available 06/03/2022 07:59:49 Reason for Referral None Reported. Results Created Date Observation Date Name Description Value Unit Range Abnormal Flag Note LastModifiedBy Organization Detail LastModifiedTime 05/06/2005/06/2022 BASIC METAB OLIC PANEL glucose 108 mg/dL 70-100 high Not Available [address], [address], 05/06/2022 11:31:54 05/06/20 22 05/06/2022 BASIC METAB OLIC PANEL BUN 9 mg/dL 7-18 Not Available [address], [address], 05/06/2022 11:31:54 05/06/2005/06/2022 BASIC METAB OLIC PANEL creatinine 0.6 mg/dL 0.8-1. 3 low Not Available [address], [address], 05/06/2022 11:31:54 05/06/20 22 05/06/2022 BASIC METAB OLIC PANEL B/C 15.0 ratio Not Available [address], [address], 05/06/2022 11:31:54 05/06/20 22 05/06/2022 BASIC METAB OLIC PANEL GFR >=60ML /MIN mL/mi n normal >=60m L/min - Trudy l or midly reduc ed <60mL /min- Decre ased kidne y funct ion <15mL /min - Kidne y failu re [facility] calcu lates estim ated Glome rular Filtr ation Rate (eGFR ) using the Chron ic Kidne y Disea se Epide miolo gy Colla borat ion (CKD- EPI) Equat ion (Kodi r et. al 2020) as recom magen d by the Natio nal Kidne y Found ation . eGFR is based on age, serum creat inine , and sex. CKD-E PI does not calcu late eGFR by race, does not apply to child niraj (age <18 years ), and shoul d not be used in pregn alex. Not Available [address], [address], 05/06/2022 11:31:54 05/06/20 22 05/06/2022 BASIC METAB OLIC PANEL sodium 140 mmol/ L 136-14 5 Not Available [address], [address], 05/06/2022 11:31:54 05/06/20 22 05/06/2022 BASIC METAB OLIC PANEL potassium 4.5 mmol/ L 3.5-5. 1 Not Available [address], [address], 05/06/2022 11:31:54 05/06/20 22 05/06/2022 BASIC METAB OLIC PANEL chloride 105 mmol/ L 96-107 Not Available [address], [address], 05/06/2022 11:31:54 05/06/20 22 05/06/2022 BASIC METAB OLIC PANEL anion gap 7.3 5.0-15 .0 Not Available [address], [address], 05/06/2022 11:31:54 05/06/20 22 05/06/2022 BASIC METAB OLIC PANEL CO2 28 mmol/ L 21-32 Not Available [address], [address], 05/06/2022 11:31:54 05/06/20 22 05/06/2022 BASIC METAB OLIC PANEL calcium 9.2 mg/dL 8.5-10 .3 Not Available [address], [address], 05/06/2022 11:31:54 08/03/20 22 08/04/2022 CBC (INCL UDES DIFF/ PLT) white blood cell count 8.5 thous and/u L 3.8-10 .8 normal Not Available [facility] [address], [address], 08/04/2022 05:46:45 08/03/20 22 08/04/2022 CBC (INCL UDES DIFF/ PLT) red blood cell count 4.80 rohit on/uL 3.80-5 .10 normal Not Available [facility] [address], [address], 08/04/2022 05:46:45 08/03/20 22 08/04/2022 CBC (INCL UDES DIFF/ PLT) hemoglobin 13.4 g/dL 11.7-1 5.5 normal Not Available [facility] [address], [address], 08/04/2022 05:46:45 08/03/20 22 08/04/2022 CBC (INCL UDES DIFF/ PLT) hematocrit 39.9 % 35.0-4 5.0 normal Not Available [facility] [address], [address], 08/04/2022 05:46:45 08/03/20 22 08/04/2022 CBC (INCL UDES DIFF/ PLT) MCV 83.1 fL 80.0-1 00.0 normal Not Available [facility] [address], [place], [address], 08/04/2022 05:46:45 08/03/20 22 08/04/2022 CBC (INCL UDES DIFF/ PLT) MCH 27.9 pg 27.0-3 3.0 normal Not Available [facility] [address], [place], [address], 08/04/2022 05:46:45 08/03/20 22 08/04/2022 CBC (INCL UDES DIFF/ PLT) MCHC 33.6 g/dL 32.0-3 6.0 normal Not Available [facility] [address], [place], [address], 08/04/2022 05:46:45 08/03/20 22 08/04/2022 CBC (INCL UDES DIFF/ PLT) RDW 13.8 % 11.0-1 5.0 normal Not Available [facility] [address], [place], [address], 08/04/2022 05:46:45 08/03/20 22 08/04/2022 CBC (INCL UDES DIFF/ PLT) platelet count 402 thous and/u L 140-40 0 high Not Available [facility] [address], [place], [address], 08/04/2022 05:46:45 08/03/20 22 08/04/2022 CBC (INCL UDES DIFF/ PLT) MPV 9.5 fL 7.5-12 .5 normal Not Available [facility] [address], [place], [address], 08/04/2022 05:46:45 08/03/20 22 08/04/2022 CBC (INCL UDES DIFF/ PLT) absolute neutrophils 5253 cells /uL 1500-7 800 normal Not Available [facility] [address], [place], [address], 08/04/2022 05:46:45 08/03/20 22 08/04/2022 CBC (INCL UDES DIFF/ PLT) absolute lymphocytes 1352 cells /uL 850-39 00 normal Not Available [facility] [address], [address], 08/04/2022 05:46:45 08/03/20 22 08/04/2022 CBC (INCL UDES DIFF/ PLT) absolute monocytes 1802 cells /uL 200-95 0 high Not Available [facility] [address], [address], 08/04/2022 05:46:45 08/03/20 22 08/04/2022 CBC (INCL UDES DIFF/ PLT) absolute eosinophils 43 cells /uL 15-500 normal Not Available [facility] [address], [address], 08/04/2022 05:46:45 08/03/20 22 08/04/2022 CBC (INCL UDES DIFF/ PLT) absolute basophils 51 cells /uL 0-200 normal Not Available [facility] [address], [address], 08/04/2022 05:46:45 08/03/20 22 08/04/2022 CBC (INCL UDES DIFF/ PLT) neutrophils 61.8 % normal Not Available [facility] [address] [place] [address], [address], 08/04/2022 05:46:45 08/03/20 22 08/04/2022 CBC (INCL UDES DIFF/ PLT) lymphocytes 15.9 % normal Not Available [facility] [address], [place], [address], 08/04/2022 05:46:45 08/03/20 22 08/04/2022 CBC (INCL UDES DIFF/ PLT) monocytes 21.2 % normal Not Available [facility] [address], [place], [address], 08/04/2022 05:46:45 08/03/20 22 08/04/2022 CBC (INCL UDES DIFF/ PLT) eosinophils 0.5 % normal Not Available [facility] [address], [place], [address], 08/04/2022 05:46:45 08/03/20 22 08/04/2022 CBC (INCL UDES DIFF/ PLT) basophils 0.6 % normal Not Available [facility] [address], [place], [address], 08/04/2022 05:46:45 08/03/20 22 08/04/2022 SED RATE BY MODIF IED ANNA RGREN sed rate by modified westergren 17 mm/h < or = 30 normal Not Available [facility] [address], [place], [address], 08/04/2022 05:46:46 08/03/20 22 08/05/2022 COMP. METAB OLIC PANEL glucose 132 mg/dL 70-100 high Not Available [address], [address], 08/05/2022 12:05:20 08/03/20 22 08/05/2022 COMP. METAB OLIC PANEL BUN 9 mg/dL 7-18 Not Available [address], [address], 08/05/2022 12:05:20 08/03/20 22 08/05/2022 COMP. METAB OLIC PANEL creatinine 0.7 mg/dL 0.8-1. 3 low Not Available [address], [address], 08/05/2022 12:05:20 08/03/20 22 08/05/2022 COMP. METAB OLIC PANEL B/C 12.9 ratio Not Available [address], [address], 08/05/2022 12:05:20 08/03/20 22 08/05/2022 COMP. METAB OLIC PANEL GFR >=60ML /MIN mL/mi n normal >=60m L/min - Trudy l or midly reduc ed <60mL /min- Decre ased kidne y funct ion <15mL /min - Kidne y failu re [facility] calcu lates estim ated Glome rular Filtr ation Rate (eGFR ) using the Chron ic Kidne y Disea se Epide miolo gy Colla borat ion (CKD- EPI) Equat ion (Kodi r et. al 2020) as recom magen d by the Natio nal Kidne y Found ation . eGFR is based on age, serum creat inine , and sex. CKD-E PI does not calcu late eGFR by race, does not apply to child niraj (age <18 years ), and shoul d not be used in pregn alex. Not Available [address], [address], 08/05/2022 12:05:20 08/03/20 22 08/05/2022 COMP. METAB OLIC PANEL sodium 139 mmol/ L 136-14 5 Not Available [address], [address], 08/05/2022 12:05:20 08/03/20 22 08/05/2022 COMP. METAB OLIC PANEL potassium 5.0 mmol/ L 3.5-5. 1 Not Available [address], [address], 08/05/2022 12:05:20 08/03/20 22 08/05/2022 COMP. METAB OLIC PANEL chloride 104 mmol/ L 96-107 Not Available [address], [address], 08/05/2022 12:05:20 08/03/20 22 08/05/2022 COMP. METAB OLIC PANEL anion gap 7.6 5.0-15 .0 Not Available [address], [address], 08/05/2022 12:05:20 08/03/20 22 08/05/2022 COMP. METAB OLIC PANEL CO2 27 mmol/ L 21-32 Not Available [address], [address], 08/05/2022 12:05:20 08/03/20 22 08/05/2022 COMP. METAB OLIC PANEL calcium 9.2 mg/dL 8.5-10 .3 Not Available [address], [address], 08/05/2022 12:05:20 08/03/20 22 08/05/2022 COMP. METAB OLIC PANEL total protein 7.2 g/dL 6.4-8. 2 Not Available [address], [address], 08/05/2022 12:05:20 08/03/20 22 08/05/2022 COMP. METAB OLIC PANEL albumin 3.7 g/dL 3.4-5. 0 Not Available [address], [address], 08/05/2022 12:05:20 08/03/20 22 08/05/2022 COMP. METAB OLIC PANEL globulin 3.5 g/dL Not Available [address], [address], 08/05/2022 12:05:20 08/03/20 22 08/05/2022 COMP. METAB OLIC PANEL A/G 1.1 ratio 0.8-2. 0 Not Available [address], [address], 08/05/2022 12:05:20 08/03/20 22 08/05/2022 COMP. METAB OLIC PANEL total bilirubin 0.40 mg/dL 0.00-1 .00 Not Available [address], [address], 08/05/2022 12:05:20 08/03/20 22 08/05/2022 COMP. METAB OLIC PANEL AST 27 U/L 0-37 Not Available [address], [address], 08/05/2022 12:05:20 08/03/20 22 08/05/2022 COMP. METAB OLIC PANEL ALT 34 U/L 6-63 Not Available [address], [address], 08/05/2022 12:05:20 08/03/20 22 08/05/2022 COMP. METAB OLIC PANEL alk. phos. 83 U/L 50-136 Not Available [address], [address], 08/05/2022 12:05:20 08/03/20 22 08/05/2022 LIPID PANEL cholesterol 214 mg/dL <200 mg/dl Zion able 200-2 39 mg/dl Borde rline High >240 mg/dl High Not Available [address], [address], 08/05/2022 12:05:21 08/03/20 22 08/05/2022 LIPID PANEL triglyceride s 73 mg/dL <150 mg/dL Trudy l 150-1 99 mg/dL Borde rline High 200-4 99 mg/dL High >500 mg/dL Very High Not Available [address], [address], 08/05/2022 12:05:21 08/03/20 22 08/05/2022 LIPID PANEL direct HDL 71 mg/dL <40 mg/dl - Major Risk for CHD >60 mg/dl - Negat bernie Risk for CHD Not Available [address], [address], 08/05/2022 12:05:21 08/03/20 22 08/05/2022 C-ELZA CTIVE PROTE IN-QU ANTIT ATIVE C-reactive protein -quant 20.2 mg/L 0.0-9. 0 high Not Available [address], [address], 08/05/2022 12:05:22 08/03/20 22 08/05/2022 LDL - CALCU LATED LDL - calculated 128.4 RISK CATEG ORY LDL GOAL _ CHD or CHD Risk Equiv alent s <100 mg/dl (10-y ear risk >20%) 2+ Risk Facto rs <130 mg/dl (10-y ear risk <= 20%) 0-1 Risk Facto r? <160 mg/dl ? Almos t all peopl e with 0-1 risk facto r have a 10 year risk <10%, thus 10 year risk asses ment in peopl e with 0-1 risk facto r is not neces ximena. Not Available [address], [address], 08/05/2022 12:05:23 Result Notes None recorded. Problems Name Problem SNOMED Code Status Onset Date Resolution Date Notes Provider Name and Address Organization Details Recorded Time Localized, primary osteoarthr itis 100278899 Active Not Available [facility] 3 03:34:36 Rheumatoid arthritis 80106035 Active Tian Dixon MD [address] [place] [address], [phone] , [facility] 6 09:26:26 Osteoarthr itis of knee 910476663 Active Not Available [facility] 3 03:34:36 Anemia 544842205 Active Not Available [facility] 3 03:15:39 Sleep disorder 37766775 Active Not Available [facility] 3 03:15:39 Measuremen t finding outside reference range 216364039 Completed 07/28/2013 Not Available [facility] 3 02:03:25 Inflammato ry polyarthro dima 491064991 Active Not Available [facility] 3 03:15:39 Primary malignant neoplasm of female breast 68133083 Active Not Available [facility] 3 03:15:39 Pain in limb 73694030 Completed 07/28/2013 Not Available [facility] 3 02:00:58 Standard chest X-ray abnormal 414602710 Active Tian Dixon MD [address] [place] [address], [address] , [facility] 4 19:12:06 Contact dermatitis 87706228 Active Tian Dixon MD [address] [place] [address], [phone] , [facility] 5 08:53:16 Disorder of rotator cuff 449782879 Active Tian Dixon MD [address] [place] [address], [address] , [facility] 5 18:06:33 Cervical radiculopa thy 37235236 Active Tian Dixon MD [address] [place] [address], [address] , [facility] 5 18:06:33 Long-term drug therapy Active 2015 Tian Dixon MD [address] [place] [address], [phone] , [facility] 6 08:30:01 Problem Notes None recorded. Procedures Surgical History Date Name Laterality Status Provider Name and Address Organization Details Recorded Time 06/03/20 368[address]: Therapeutic Exercise completed DAI MEYERS, PT [address] [place], [address], [facility] 06/03/2022 08:24:56 05/30/20 25548: Manual Therapy completed DAI MEYERS PT [address] [facility] [place], [address], [facility] 05/30/2022 09:44:31 05/30/20 22 Neuromuscular re-education completed DAI MEYERS, PT [address] [place], [address], [facility] 05/30/2022 09:44:18 05/30/20 Treatment and Advice completed DAI MEYERS, PT [address] [place], [address], [facility] [facility] 05/30/2022 09:43:29 05/27/20 00947: Manual Therapy completed DAI MEYERS, PT [address] [place], [address], [facility] 05/27/2022 08:25:40 05/27/20 60592: Therapeutic Activities - Direct 1:1 completed DAI MEYERS, PT [address] [place], [address], [facility] 05/27/2022 08:26:12 05/27/20 Treatment and Advice completed DAI MEYERS, PT [address] [place], [address], [facility] 05/27/2022 08:01:26 05/23/20 11570: Therapeutic Exercise completed DAI MEYERS, PT [address] [place], [address], [facility] 05/23/2022 08:17:13 05/23/20 05317: Manual Therapy completed DAI MEYERS, PT [address] [place], [address], [facility] 05/23/2022 08:31:55 05/23/20 66688: Therapeutic Activities - Direct 1:1 completed DAI MEYERS, PT [address] [place], [address], [facility] 05/23/2022 08:31:31 05/23/20 Treatment and Advice completed DAI MEYERS, PT [address] [place], [address], [facility] 05/23/2022 07:59:16 05/20/20 47348: Therapeutic Exercise completed DAI MEYERS, PT [address] [place], [address], [facility] 05/20/2022 09:04:19 05/20/20 22 Neuromuscular re-education completed DAI MEYERS, PT [address] [place], [address], [facility] 05/20/2022 09:04:05 05/20/20 22 80927: Therapeutic Activities - Direct 1:1 completed DAI MEYERS, PT [address] [place], [address], [facility] 05/20/2022 09:04:09 05/20/20 22 Treatment and Advice completed DAI MEYERS, PT [address] [place], [address], [facility] 05/20/2022 08:35:22 04/22/20 22 Neuromuscular re-education completed DAI MEYERS, PT [address] [place], [address], [facility] 04/22/2022 14:32:53 04/22/20 22 84179: Therapeutic Activities - Direct 1:1 completed DAI MEYERS, PT [address] [place], [address], [facility] 04/22/2022 14:31:32 04/22/20 22 Treatment and Advice completed DAI MEYERS, PT [address] [place], [address], [facility] 04/22/2022 14:06:50 04/15/20 22 Neuromuscular re-education completed DAI MEYERS, PT [address] [place], [address], [facility] 04/15/2022 17:04:08 04/15/20 22 25041: Therapeutic Activities - Direct 1:1 completed DAI MEYERS, PT [address] [place], [address], [facility] 04/15/2022 17:02:47 04/15/20 22 Treatment and Advice completed DAI MEYERS, PT [address] [place], [address], [facility] 04/15/2022 16:40:31 04/11/20 Physical Activity Counselling completed DAI MEYERS, PT [address] [place], [address], [facility] 04/11/2022 09:14:34 04/11/20 20465: PT Eval, Moderate Complexity completed DAI MEYERS, PT [address] [place], [address], [facility] 04/11/2022 11:03:13 04/11/20 89216: Therapeutic Activities - Direct 1:1 completed DAI MEYERS, PT [address] [place], [address], [facility] 04/11/2022 14:33:28 04/11/20 Treatment and Advice completed DAI MEYERS, PT [address] [place], [address], [facility] 04/11/2022 14:33:02 07/16/20 19 85893: Therapeutic Exercise completed Esau Rios, PT [address] [place], [address], [facility] 07/16/2019 08:15:38 07/16/20 45233: Mechanical Traction completed Esau Rios, PT [address] [place], [address], [facility] 07/16/2019 08:26:25 07/09/20 19 21388: Therapeutic Exercise completed Esau Rios, PT [address] [place], [address], [facility] 07/14/2019 06:10:54 07/09/20 19 10615: Manual Therapy completed Esau Rios, PT [address] [place], [address], [facility] 07/14/2019 06:10:48 06/29/20 Physical Activity Counselling completed Esau Rios, PT [address] [place], [address], [facility] 06/29/2019 11:48:41 06/29/20 19 14135: PT Eval, Moderate Complexity completed Esau Rios, PT [address] [place], [address], [facility] 06/29/2019 11:48:38 10/01/19 17 Generic Procedure Template completed Tian Dixon MD [address] [place] [address], [address], [facility] 10/02/2016 10:14:45 06/06/20 15 Shoulder (Left) Injection completed Tian Dixon MD [address] [place] [address], [address], [facility] 06/07/2015 09:36:50 Imaging Results None recorded. Procedure Notes None recorded. Medical Equipment None Reported. Allergies Allergen ID Allergen Name Allergen Category Reaction Reaction Severity Criticality Documentation Date Start Date Code Code System Note Provider Name and Address Organization Details Recorded Time 20480315 Enbrel medicatio n other moderate Not available 02/09/2018 86974 1 RxNorm Depre ssion . Tian Dixon MD [address] [place] [address], [address], [facility] 8 10:13:33 551267 Latex (substanc e) environme nt,medica tion rash Not available Not available 09/10/2018 09283 8007 SNOMED Daniela Hdez LPN [facility] 9 09:53:17 Medications Name Sig Start Date Stop Date Status Note LastModified by Organization Details LastModified Time Prescript ion - Prior Authoriza tion Request active Not Available Not Available Not Available cyclobenz aprine 10 mg tablet Take 1 tablet every day by oral route for 30 days. 2021 active Not Available Not Available Not Avai lable prednison e 10 mg tablet Take 1 tablet every day by oral route for 14 days. 02/19 completed Not Available Not Available Not Available ibuprofen 800 mg tablet TAKE 1 TABLET BY MOUTH 4 TIMES A DAY 02/19 completed prn Not Available Not Available Not Available tizanidin e 4 mg tablet TAKE 1 TABLET BY MOUTH DAILY OR TWICE A DAY NEEDED. active Pt not taking Not Available Not Available Not Available meloxicam 15 mg tablet Take 1 tablet every day by oral route. 10/10 completed not taking at this time due to remissio n Not Available Not Available Not Available prednison e 20 mg tablet TAKE 2 TABLETS BY MOUTH EVERY DAY FOR 4 DAYS THEN TAKE 1 TABLET DAILY FOR 2 DAYS 02/19 completed not taking Not Available Not Available Not Available alendrona te 70 mg tablet TAKE 1 TABLET BY MOUTH EVERY WEEK 2021 active Not Available Not Available Not Avai lable prednison e 5 mg tablet 6 po qd for 2 days, the 4 po qd 1 week, then 2 po qd 1 week, then 1 po qd 1 week. 02/19 completed Not taking Not Available Not Available Not Available sulfasala zine 500 mg tablet,de layed release 1 po qd for 4 d, then 1 po bid for 4 d , then 2 po bid 02/09 completed not taking 05/15/17 Not Available Not Available Not Available permethri n 5 % topical cream 10/10 completed Not Available Not Available Not Available leflunomi de 10 mg tablet Take 1 tablet every day by oral route. 02/19 completed Pt not taking, states doing fine without Not Available Not Available Not Available acetamino phen 300 mg-codein e 30 mg tablet Take 1 tablet every 6 hours by oral route. 04/21 completed Not Available Not Available Not Available leflunomi de 20 mg tablet take 1 tablet by mouth once daily 02/09 completed not taking Not Available Not Available Not Available tramadol 50 mg tablet 06/08 completed Not Available Not Available Not Available Kenalog 40 mg/mL suspensio n for injection 04/21 completed Not Available Not Available Not Available amoxicill in 875 mg tablet 06/08 completed Not Available Not Available Not Available methotrex ate sodium 2.5 mg tablet TAKE 8 TABLETS PER WEEK DIRECTED 02/19 completed Stopped 12/01/20 Not Available Not Available Not Available doxycycli ne monohydra te 100 mg capsule 02/09 completed Not Available Not Available Not Available omeprazol e 20 mg capsule,d elayed release TAKE 1 CAPSULE( S) BY MOUTH EVERY DAY active Pt not currentl y taking Not Available Not Available Not Available leucovori n calcium 5 mg tablet TAKE 2 TABLETS WEEKLY APPROX 12 HRS AFTER METHOTRE XATE DOSE 02/19 completed stopped Not Available Not Available Not Available folic acid 1 mg tablet TAKE 1 TABLET BY MOUTH DAILY 02/09 completed not taking Not Available Not Available Not Available hydroxych loroquine 200 mg tablet TAKE 1 TABLET BY MOUTH TWICE A DAY 02/09 completed Not taking 05/15/17 Not Available Not Available Not Available naproxen 500 mg tablet Take 1 tablet twice a day by oral route for 60 days. 2021 active Not Available Not Available Not Avai lable Enbrel 50 mg/mL (1 mL) subcutane ous syringe active Not Available Not Available Not Available Aleve 02/09 completed Not Available Not Available Not Available calcium 600 mg (as carbonate )-vitamin D3 10 mcg (400 unit) tablet Take 1 tablet twice a day by oral route for 30 days. 2021 active Not Available Not Available Not Avai lable Enbrel SureClick 50 mg/mL (1 mL) subcutane ous pen injector INJECT 1 PEN (50 MG) UNDER THE SKIN EVERY WEEK 02/09 completed Not Available Not Available Not Available Xeljanz 5 mg tablet active Not Available Not Available No t Available Vitals None Recorded Social History Question Answer Notes LastModified by Organizat ion Details LastModified Time Tobacco Smoking Status Never Smoker Isa Dietrich LPN [facility], [facility] 07/20/2012 13:47:28 What Is Your Level Of Alcohol Consumption? None Information not available 11/12/2012 How Much Tobacco Do You Chew? None Information not available 04/14/2013 What Is Your Occupation? Other [email or web address] Information not available 07/12/2013 Marital Status Informatio n not available 07/20/2012 What Was The Date Of Your Most Recent Tobacco Screening? 12/08/2018 Information n ot available 03/31/2019 Sex: Unknown Functional Status None recorded. Mental Status None recorded. Family History Relationship Description Onset Age of this Age Resolved Age Notes LastModified by Organization Details LastModified Time Mother Arthritis Not available 08/09/2015 18:00:46 Brother Rheumatoid arthritis [email or web address] Not available 2014 18:00:46 Brother Coronary arterioscler osis [email or web address] Not available 2018 09:57:51 Sister Coronary arterioscler osis [email or web address] Not available 2018 09:57:51 Notes:negative for inflammat ory arthritis. Parents probably had degenerative arthritis. Medical History Condition Response Rheumatoid Arthritis Y CANCER Y MUSCULOSKELETAL Gynecological HistoryNo gynecological history recorded. Obstetrics History GPAL:G 0 P 0 0 0 0 Immunizations Vaccine Type Date Status Note Provider Nam e and Address Organization Details Recorded Time Influenza, split virus, trivalent, PF 07/12/2013 completed Not Available [facility] 2019 02:27:10 COVID-19 vaccine, vector-nr, rS-Ad26, PF, 0.5 mL 01/18/2021 completed Sally Acuña LPN null, [facility] 12/11/2021 08:03:31 COVID-19 vaccine, vector-nr, rS-Ad26, PF, 0.5 mL 08/20/2021 completed Sally Acuña LPN null, [facility] 12/11/2021 08:03:42 Past Encounters Encounter ID Performer Location Encounter Start Date Encounter Closed Date Diagnosis/Indication Diagnosis SNOMED-CT Code Diagnosis ICD10 Code Diagnosis Note [id number] Sedrick Rai LPN [facility]umat[facility], [address] [place] [address] 07/20/2012 13:33:25 07/20/2012 14:28:19 [id number] Lamberto Ivey MD Radiology , [address] [place] [address] 07/20/2012 14:52:31 07/20/2012 16:07:12 [id number] Lamberto Ivey MD Radiology , [address] [place] [address] 07/20/2012 14:52:40 07/20/2012 16:07:16 [id number] Lamberto Ivey MD Radiology , [address] [place] [address] 07/20/2012 14:52:47 07/20/2012 15:55:04 [id number] Sedrick Rai LPN [facility], [address] [place] [address] 09/02/2012 10:14:11 09/03/2012 09:00:53 [id number] Jorge Anton MD Radiology , [address], [place] [address] 09/02/2012 10:50:44 09/02/2012 11:04:16 [id number] Tian Dixon MD Rheumatol [facility] [place] [address] 09/30/2012 11:28:15 09/30/2012 12:00:49 [id number] Rheumatol [facility] [place] [address] 11/12/2012 08:32:32 11/13/2012 09:01:12 [id number] Liudmila Lin Rheumatol [facility] [address] [place], [place] [address] 01/07/2013 08:13:16 01/07/2013 08:36:01 [id number] Rheumatol [facility] [address] [place], [place] [address] 04/14/2013 08:45:47 04/14/2013 09:10:25 [id number] Rheumatol [facility] Nancy [facility] [place], [place] [address] 07/12/2013 10:50:45 07/12/2013 11:42:07 Rheumatoid arthritis [id number] Recent diagnosis of sero-posit bernie, CCP positive rheumatoid arthritis. There were early erosions on hand x-rays. Excellent, essentiall y full clinical response to MTX + Plaquenil. Perhaps some minimal return of sx's past couple of weeks. I see no reason to consider additional therapy at this time. Does have eartly erosions and will want to repeat x rays. There is a remote (1999) history of breast cancer and this might impact our decision regarding using TNF agents. I will discuss this with the patient if needed. on Plaquenil. Discussed. She sees Dr Shepard. Influenza vaccine needed [id number] [facility] methotrexate user [id number] Pt on skilled nursing MTX. Reviewed recent labs. No signs or symptoms of toxicity. Tolerating well. Continue monitor labs. Continue folate/jordin covorin supplement [id number] Rheumatol [facility] [place] [address] 02/13/2015 08:14:02 02/14/2015 09:26:04 Rheumatoid arthritis [id number] Prior diagnosis of sero-posit bernie, CCP positive rheumatoid arthritis. There were early erosions on hand x-rays. The arthritis seems to have gone into full remission. She has not taken any DMARD medication s in more than 9 months, has no findings of active synovitis, swelling or limitation . I see no reason to update labs or x-rays today, but if she has ANY recurrent symptoms or swelling, stiffness etc., I told her to be sure to make an appointmen t to see me again. Contact dermatitis [id number] Rash today looks like contact dermatitis , probably poison sun. She has a lot of symptoms with itching. I will give her a Kenalog injection today, 60 mg, and she is advised to take Benadryl, use calamine lotion. If she does not see improvemen t, follow up with primary care. [id number] Rheumatol [facility], [facility] [address] [facility] [place] [address] 06/06/2015 09:46:22 06/06/2015 11:03:14 Rheumatoid arthritis [id number] Prior diagnosis of sero-posit bernie, CCP positive rheumatoid arthritis. There were early erosions on hand x-rays. The arthritis seems to have gone into full remission. She has not taken any DMARD medication s in more than a year and has no findings of active synovitis, swelling or limitation . Apparent full remission. Return as needed for any recurrent sxs. Disorder o f rotator cuff [id number] Findings today of left rotator cuff tendinitis /bursitis. There may have been some pre-existi ng discomfort , but clearly got worse 2 weeks ago. 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 There has been some improvemen t, but I think trial of local injection would be appropriat e today. See procedure note. Her body habitus was such that it required a spinal needle for injection, but the injection seemed to flow freely into the subacromia l space and she did get some immediate anesthetic effect. If response is incomplete , I would suggest an ultrasound -guided injection. Dr. Araujo can do this here at [facility] or she could be referred to orthopedic s for evaluation . Cervical radiculopathy [id number] In addition to the left rotator cuff tendinitis , she pretty clearly has a mild left cervical radiculopa thy. There is tingling and dysesthesi a left thumb with rotation of the neck. There is no weakness or other neurologic al deficit. She does not have a lot of neck pain. This symptom may improve with the systemic absorption of the steroid I injected into the left subacromia l space. I also told her to prop her next without she does not rotate much at night. If the symptoms persist or certainly worsen, next step would be physical therapy and/or referral to [facility]. [id number] Tian Dixon MD Rheumatol [address] [place] [address] 08/09/2015 08:47:10 08/09/2015 09:31:02 Disorder of rotator cuff [id number] M75.82 Injection last time only helpful for about 3 weeks. Not clear how much of her current sx's part of the radiculopa thy. If sxs fail to improve with treatment at the neck, could refer to Dr Araujo for u/s guided subacromia l injection (body habitus made prior blind injection difficult) . Cervical radiculopathy [id number] M54.12 She pretty clearly has a mild left cervical radiculopa thy, probably C6. There is tingling and dysesthesi a left thumb with rotation of the neck. There is no weakness or other neurologic al deficit. She does not have a lot of neck pain. She has complained of these sx's 2 mo ago, but the pain has progressed . Will obtain x ray and I suggested PT treatment. If the symptoms persist or certainly worsen, next step would be referral to [facility]. [id number] Tian Dixon MD Rheumatol [address] [place] [address] 12/01/2015 09:31:28 12/04/2015 09:58:04 Rheumatoid arthritis [id number] M06.9 Prior diagnosis of sero-posit bernie, CCP positive rheumatoid arthritis. There were early erosions on hand x-rays. She was treated with about a year and a half of methotrexa te plus Plaquenil, went into full remission and was completely asymptomat ic for about 18 months. Now she quite evidently has recurrent, active synovitis. We discussed the unpredicta ble nature of rheumatoid arthritis. She has erosive disease and the need to get this under control quickly. For immediate symptomati c relief she will take a course of prednisone until the DMARD therapy takes effect. Restart methotrexa te at 15 mg weekly for 2 weeks, then increase to her prior dose which was 20 mg weekly. She will take concurrent folate and leucovorin . At next visit, if needed, we will add Plaquenil. Check baseline labs and updated x-rays today. Return in about 5 weeks. [id number] Tian Dixon MD Rheumatol [address] [address] 01/10/2016 08:49:55 01/10/2016 10:02:41 Rheumatoid arthritis [id number] M06.9 Prior diagnosis of sero-posit bernie, CCP positive rheumatoid arthritis. There were early erosions on hand x-rays. Had been in remission off all meds, but the relapsed Oct 2015. Now back on MTX. Also still on prednisone 10 mg/d. Clearly vastly improved. Not sure how much improvemen t is prednisone and how much MTX. Discussed. Will taper her off prednisone over 2 weeks. Cont MTX. Re-eval 6 weeks. When treated 2 yrs ago, seemed to do very well on MTX + P;aquenil. Thus, add Plaquenil if synovitis recurs with prednisone taper. 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 Reviewed recent labs. No signs or symptoms of toxicity. Tolerating well. Continue monitor labs. Continue folate/jordin covorin supplement [id number] Tian Dixon MD Rheumatol [address] [address] 03/26/2016 07:47:49 03/26/2016 14:47:56 Rheumatoid arthritis [id number] M06.9 Prior diagnosis of sero-posit bernie, CCP positive rheumatoid arthritis. There were early erosions on hand x-rays. Had been in remission off all meds, but the relapsed Oct 2015. Now back on MTX. Also still on prednisone 10 mg/d. Flared up when she tried to go below 10 mg. Today, even with 10/d prednisone has active synovitis. When treated 2 yrs ago, seemed to do very well on MTX + Plaquenil. Thus, add Plaquenil. Instructed back to 20/d pred 1 week, 15 1 wk, then 10/d. Re-eval 6 wks. Long-term drug therapy [id number] Z79.899 Z79.52 On skilled nursing MTX; Needs lab monitoring ; Check CBC, LFT's, creat. Add MVI (for folate).On prednisone . attempting to taper. Check glu. Taking calcium. [id number] Tian Dixon MD Rheumatol [address] [address] 05/07/2016 08:11:28 05/09/2016 07:37:34 Rheumatoid arthritis [id number] M06.9 Prior diagnosis of sero-posit bernie, CCP positive rheumatoid arthritis. There were early erosions on hand x-rays. Had been in remission off all meds, but the relapsed Oct 2015. Now back on MTX + Plaquenil +. prednisone 10 mg/d. Flared up when she tried to go below 10 mg. Today, even with 10/d prednisone has active synovitis. Discussed options. Pt has remote hx breast cancer (15 yrs), probably not contraindi cation to Biologics, l but I would prefer to try triple therapy with convention al DMARDs. Discussed. Add SSZ. Patient will begin sulfasalaz ine. Medication discussed in detail. Potential for side effects including, particular ly, potential for allergic reaction. On rare occasions this can be very serious. Patient instructed to discontinu e the medication immediatel y for any suspected allergy. Other side effects reviewed including headache, malaise, and GI upset. Follow-up blood count in 10 days. Long-term drug therapy [id number] Z79.899 Z79.52 On rodent exterminator MTX; Needs lab monitoring ; Check CBC, LFT's, creat. Add MVI (for folate).On prednisone . attempting to taper. Check glu. Taking calcium. [id number] Tian Dixon MD Rheumatol [address] [address] 06/17/2016 09:37:48 06/17/2016 10:07:16 Rheumatoid arthritis [id number] M06.9 Prior diagnosis of sero-posit bernie, CCP positive rheumatoid arthritis. There were early erosions on hand x-rays. Had been in remission off all meds, but the relapsed Oct 2015. Now back on treatment including MTX + Plaquenil +. prednisone 15 mg/d + SSZ (past 6 wks). Flared up when she tried to go to10 mg. Today, even with 15/d prednisone has active synovitis. Discussed options. Pt has remote hx breast cancer (15 yrs), probably not contraindi cation to Biologics, l but I would prefer to try to avoid TNF. SSZ apparently ineffectiv e. I discussed Leflunomid e, the potential for side effects including, but not limited to, diarrhea, rash, inflammati on of the liver. I emphasized need for monitoring labs and I explained that taking cholestyra mine might be necessary in the event of any serious side effect. Repeat labs in 4 weeks. Re eval 2 mo. If not improveing will need to move on to Biologic at next visit. Long-term drug therapy [id number] Z79.899 Z79.52 On skilled nursing MTX; Needs lab monitoring ; Check CBC, LFT's, creat. Add MVI (for folate).On prednisone . attempting to taper. Check glu. Taking calcium.Co nsider order BMD as dose of prednisone over 10 mg. [id number] Tian Dixon MD Rheumatol [facility], [facility] [address] [place] [address] 08/13/2016 07:47:23 08/14/2016 07:26:42 Rheumatoid arthritis [id number] M06.9 Prior diagnosis of sero-posit bernie, CCP positive rheumatoid arthritis. There were early erosions on hand x-rays. Had been in remission off all meds, but the relapsed Oct 2015. Now back on treatment including MTX + Plaquenil +. prednisone 15 mg/d + LEF 10 mg/d. SSZ was discontinu ed (ineffecti ve). Much improved compared to 4 weeks ago. Seems to have responded to the LEF. We will now try tapering prednisone : 12.5 mg for 2 weeks, then 10 mg daily until next visit in 6 weeks. On multiple meds, follow labs closely. Check today. Long-term drug therapy [id number] Z79.899 Z79.52 On skilled nursing MTX; Needs lab monitoring ; Check CBC, LFT's, creat. Add MVI (for folate).On prednisone . attempting to taper. Check glu. Taking calcium.On LEF 10mg/d. Seems to be tolerating fine.Consi zully order BMD as dose of prednisone over 10 mg. Anemia [id number] D64.9 Mild anemia, microcytos is. Advised iron supplement (again). . 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 Has persistent numbness in median nerve distributi on. 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 Discussed. We can try splinting, but if she does not see improvemen t over next 2-3 weeks, then I think referral to Dr Cunningham is indicated. Warned that even with carpal tunnel release, she may not get full recovery of sensation. [id number] Tian Dixon MD Rheumatol [facility] [place], [facility] [address] [facility] [place] [address] 10/01/2016 08:43:51 10/02/2016 13:41:19 Rheumatoid arthritis [id number] M05.79 Prior diagnosis of sero-posit bernie, CCP positive rheumatoid arthritis. There were early erosions on hand x-rays. Had been in remission off all meds, but the relapsed Oct 2015. Now back on treatment including MTX + Plaquenil +. prednisone 15 mg/d + LEF 10 mg/d. SSZ was discontinu ed (ineffecti ve). Much improved compared to several weeks ago. Seems to have responded to the LEF. I suggested increasing LEF to 20/d and reducing MTX to 15 mg/wk.On multiple meds, follow labs closely.Up date labs in 4 weeks. Return 8 weeks. If doing well, further taper prednsione . Synovitis/ tenosynovit is - wrist [id number] M65.832 Tenosynovi tis medial to ulnar styloid L wrist. Local injection today. Long-term drug therapy [id number] Z79.899 Z79.52 On skilled nursing MTX; Needs lab monitoring ; Check CBC, LFT's, creat. MVI (for folate).On prednisone . attempting to taper.Incr easing LEF. follow up labs 4 weeks.Cons ider order BMD as dose of prednisone over 10 mg. 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 Has persistent numbness in median nerve distributi on. 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 Definitely improved compared to last visit. There may well be further improvemen t as she seems to be responding to the LEF. follow for now. [id number] Tian Dixon MD Rheumatol [place], [address] [place] [address] 11/04/2016 13:47:08 11/11/2016 07:39:37 Rheumatoid arthritis [id number] M05.79 Prior diagnosis of sero-posit bernie, CCP positive rheumatoid arthritis. See 10/01/16 note. Today false alarm . Discolorat ion index finger was some form of dye. [id number] Tian Dixon MD Rheumatol [place], [address] [place] [address] 04/21/2017 08:30:51 04/23/2017 07:28:30 Rheumatoid arthritis [id number] M05.79 Five year hx of sero+, CCP+ RA.Has been reasonably well controlled with DMARD medication , but flare in symptoms despite treatment with MTX, LEF and low dose prednisone . Also problem with non-compli ance with lab testing. Says insurance does not cover most of it. I cannot continue the MTX or LEF without lab testing to be done every 3 months. She says she is unable to comply because of financial constraint s.Discusse d options. Even with the MTX + LEF, seems to have considerab le active synovitis. Use of TNF in this setting will be useful. Will not need frequent lab monitoring . Discussed Enbrel. Specifical ly discussed risks of infection, potentiall y serious, low but definite risk of lymphoma. Need to check PPD.Patien t has hx of breast CA, but no recurrence after 17 years. This is not a contraindi cation to Enbrel.Sta rt Enbrel after prior authorizat ion. Needs to return for instructio n in injection. Tuberculos is screening [id number] Z11.1 [id number] Tian Dixon MD Rheumatol [place], [address] [place] [address] 05/15/2017 08:43:00 05/15/2017 10:13:09 Rheumatoid arthritis [id number] M05.79 See 04/21 note. Here today for Enbrel injection teaching. Successful ly self injected own med [facility] wall. [id number] Tian Dixon MD Rheumatol [address] [address] 10/10/2017 08:35:04 10/10/2017 09:12:39 Rheumatoid arthritis [id number] M05.79 Sero +, CCP + RA.In past, controlled with MTX + LEF, but couldn't afford lab monitoring . It was less expensive for her to go onto Enbel.This worked well as single agent until recently. Now polyarticu lar flare up. Discussed options. Will continue Enbrel for now, but may need to consider change to other Biologic. Add back MTX at 20 mg/wk.Leuc ovorin 5 mg/wk. Understand s she will need lab follow up every 3 months. If no improvemen t 2-3 mo, will need to switch Biologic. [id number] Tian Dixon MD Rheumatol [address] [address] 02/09/2018 09:49:34 02/09/2018 10:13:45 Rheumatoid arthritis [id number] M05.79 Sero +, CCP + RA.In past, controlled with MTX + LEF, but couldn't afford lab monitoring . It was less expensive for her to go onto Enbrel.Thi s worked well as single agent until a few months ago, then polyarticu lar flare up. She was meant to go on MTX, but I neglected to send in Rx. Then, as it turns out, she became very depressed and this remitted with discontinu ing Enbrel. Currently, only RA treatment is prednisone 5 mg. She is actually quite comfortabl e. Plan is to update x rays. If erosive disease will want to start the MTX and probably put her on Orencia. Otherwise, can continue on current prednisone 5 mg and I will see her in 3 mo. Depressive disorder [id number] F32.9 Episode depression . This remitted promptly when she stopped Enbrel. It is a little uncertain, but I would consider this a medication reaction to the Enbrel. Long-term current use of systemic steroid [id number] Z79.52 Low dose prednisone . Calcium and Vit D. [id number] Tian Dixon MD Rheumatol [place], [address] [place] [address] 05/18/2018 10:14:32 05/18/2018 10:44:39 Rheumatoid arthritis [id number] M05.79 Sero +, CCP + RA.In past, controlled with MTX + LEF, but couldn't afford lab monitoring . It was less expensive for her to go onto Enbrel.Thi s worked well as single agent but caused depression . Currently, only RA treatment is prednisone 5 mg. She has become quite symptomati c again with active synovitis. Reviewed x rays from last visit: DJD but no erosive disease. Plan is to temporaril y increase pred to 10 mg/d, add back MTX at 20 mg/wk.In 6 weeks she is going to try to reduce pred back to baseline 5 mg and I will re-assess. Probably will have to add another Biologic. Stay away from TNF meds (caused serious depression ). Xeljanz vers Orencia. Discussed that if she were to go on Xeljanz, very good idea to get Shingrix vaccine. She will look into it. Long-term drug therapy 031128769 Z79.899 Z79.52 On skilled nursing MTX; Needs lab monitoring ; Check CBC, LFT's, creat. MVI (for folate). Low dose prednisone . Calcium, vit D. [id number] Tian Dixon MD Rheumatol [place], [address] [address] 07/14/2018 09:16:43 07/14/2018 09:52:18 Rheumatoid arthritis [id number] M05.79 Sero +, CCP + RA.In past, controlled with MTX + LEF, but couldn't afford lab monitoring .Enbrel. worked well as single agent but caused SEVERE depression . Back on MTX at 20 mg/wk, but synovitis not adequately supressed. Needs additional treatment. TNF meds contraindi cated (caused SERIOUS depression ).Discusse d options. Would prefer try Xeljanz.Wi ll apply for PA. Continue prednisone 5 mg/d for now.Also IBU with concurrent (qod) omeprazole . Discussed that if she were to go on Xeljanz, very good idea to get Shingrix vaccine. Hyperlipidemia 80652664 E78.5 Hx hyperlipid emia. Going on Xeljanz. Need to follow. Long-term drug therapy [id number] Z79.899 Z79.52 On rodent exterminator MTX; Needs lab monitoring ; Check CBC, LFT's, creat. MVI (for folate). Low dose prednisone . Calcium, vit D. [id number] Tian Dixon MD Rheumat[facility] [place], [address] [address] 09/10/2018 09:47:04 09/10/2018 10:08:27 Rheumatoid arthritis [id number] M05.79 Sero +, CCP + RA.In past, controlled with MTX + LEF, but couldn't afford lab monitoring .Enbrel. worked well as single agent but caused SEVERE depression . Now on Xeljanz about 6 weeks. Substantia l sx improvemen t. Still sl swelling across MCPs but no pain.Norma nue. Plan to try to taper off prednisone : 4 mg 2 weeks, 3 mg 2 weeks etc. Cont MTX for now. Hyperlipidemia 97165527 E78.5 Hx hyperlipid emia. on Xeljanz. Need to follow. Long-term drug therapy 849398445 Z79.899 Z79.52 On skilled nursing MTX; Needs lab monitoring ; Check CBC, LFT's, creat. MVI (for folate).On Xeljanz: check LFTs , cholestero lLow dose prednisone . Calcium, vit D. Obesity 036110201 E66.9 Weight gain: she attributes this to Xeljanz. Discussed. Improve exercise etc. [id number] Tian Dixon MD Rheumatol [place], [address] [place] [address] 12/08/2018 09:17:07 12/08/2018 09:45:41 Rheumatoid arthritis 56734295 M05.79 Sero +, CCP + RA.In past, controlled with MTX + LEF, but couldn't afford lab monitoring .Enbrel. worked well as single agent but caused SEVERE depression . Now on Xeljanz 4 mo. Very substantia l sx improvemen t. Just symptomati c L index flexor tendon.Remy erating Xeljanz fine, but some increase in cholestero l.Continue . Cont MTX 20/wk. Continue Xeljanz 5 mg bid. Hyperlipidemia 06231584 E78.5 Hx hyperlipid emia. Worse on Xeljanz. LDL was 127, now 142. Discussed diet, but she also should take this up with Dr Chan.Mika ibrahim is working so well that I would be reluctant to take her off this.` Long-term drug therapy 509702851 Z79.899 Z79.52 On skilled nursing MTX; Needs lab monitoring ; Check CBC, LFT's, creat. MVI (for folate).On Xeljanz: check LFTs , cholestero l Flexor ten osynovitis of finger M65.849 L index flexor tendinitis . Mild sxs presently, but if gets worse, will try injection. [id number] Tian Dixon MD Rheumatol [facility] [place], [facility] [address] [place] [address] 06/08/2019 08:14:15 06/08/2019 08:44:25 Rheumatoid arthritis 99859147 M05.79 Sero +, CCP + RA.In past, controlled with MTX + LEF, but couldn't afford lab monitoring .Enbrel. worked well as single agent but caused SEVERE depression .Now on Xeljanz 10 mo. Very substantia l sx improvemen t. Virtual remission. Tolerating Xeljanz fine, but some increase in cholestero l.Continue . Cont MTX 20/wk. Continue Xeljanz 5 mg bid.Next time consider reduce MTX. Cervical radiculopathy 99237392 M54.12 In the past (2014) had L C6 radiculopa thy. It improved with conservati ve treatment. Now findings R C7 radiculopa thy. Update x ray.Predni sone taperPT referralti zanidineIf not improving should ask Primary Care for referral to [facility]. Long-term drug therapy [id number] Z79.899 Z79.52 On rodent exterminator MTX; Needs lab monitoring ; Check CBC, LFT's, creat. MVI (for folate).On Xeljanz: check LFTs , cholestero lDiscussed proabably increased risk clotting on Xeljanz. Take ASA daily if going on long trip etc. [id number] Esau Rios, PT Physical Therapy, [address] [place] [address] 06/29/2019 11:31:02 06/29/2019 13:24:29 Cervical radiculopathy 68874562 M54.12 [id number] Esau Rios, PT Physical Therapy, [address] [place] [address] 07/09/2019 12:12:59 07/14/2019 08:53:39 Cervical radiculopathy [id number] M54.12 [id number] Esau Rios, PT Physical Therapy, [address] [place] [address] 07/16/2019 07:57:58 07/16/2019 08:45:05 Cervical radiculopathy 56172612 M54.12 [id number] Tian Dixon MD Rheumatol [place], [address] [place] [address] 12/07/2019 08:09:38 12/07/2019 11:52:18 Rheumatoid arthritis [id number] M05.79 Sero +, CCP + RA.In past, controlled with MTX + LEF, but couldn't afford lab monitoring .Enbrel. worked well as single agent but caused SEVERE depression .On Xeljanz she had very substantia l sx improvemen t. Virtual remission but could not afford medication . Now off Xeljanz, flare in sxs, though not severe. Discussed options. Her insurance has changed and she thinks she will be able to afford labs. So, will add back LEF at 10 mg/d.Follo w up labs 2 months. Discussed immunosupp ression and lugo virus. 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 Follow up 4 mo. [id number] Tian Dixon MD Rheumatol [place], [address] [place] [address] 01/03/2020 10:44:47 01/03/2020 14:31:43 Rheumatoid arthritis [id number] M05.79 Sero +, CCP + RA.In past, controlled with MTX + LEF, but couldn't afford lab monitoring .Enbrel. worked well as single agent but caused SEVERE depression .On Xeljanz she had very substantia l sx improvemen t. Virtual remission but could not afford medication ($150 co-pay). Now off Xeljanz for 2-3 mo, flare in sxs, increasing ly severe As she did very well with the Xeljanz, will give her 1 mo supply and will try to contact someone at drug company to address problem with co-pay. Will taper off prednisone over next 10 days or so.Discuss ed immunosupp ression and lugo virus. 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 Follow up 4 wks. Long-term drug therapy 136822683 Z79.899 Z79.52 On rodent exterminator MTX; Needs lab monitoring ; Check CBC, LFT's, creat. MVI (for folate).Al so now on LEF again (low dose) Will be going back on Xeljanz and if it is effective, will stop LEF. [id number] Tian Dixon MD Rheumatol [facility] [place], [facility] [address] [place] [address] 02/29/2020 13:22:35 02/29/2020 15:43:30 Rheumatoid arthritis [id number] M05.79 Sero +, CCP + RA.In past, controlled with MTX + LEF, but couldn't afford lab monitoring .Enbrel. worked well as single agent but caused SEVERE depression .On Xeljanz she had very substantia l sx improvemen t.She had to stop for 2-3 mo for financial reasons, but now back on Xeljanz 5 bid plus MTX 20mg/wk and doing quite well. No prednisone for over 2 mo. Discussed immunosupp ression and lugo virus. 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 Update labs about 2 mo. Include lipids.Ret urn 3-4 mo, sooner if needed. Mixed hyperlipidemia [id number] 963988 E78.2 On Xeljanz. Need to update lipids. Long-term drug therapy 927526459 Z79.899 Z79.52 On rodent exterminator MTX; Needs lab monitoring ; Check CBC, LFT's, creat. MVI (for folate).Al so now on LEF again (low dose) Will be going back on Xeljanz and if it is effective, will stop LEF. [id number] Tian Dixon MD Rheumatol [place], [address] [address] 06/20/2020 10:45:56 06/21/2020 13:00:30 Rheumatoid arthritis [id number] M05.79 Sero +, CCP + RA.In past, controlled with MTX + LEF, but couldn't afford lab monitoring .Enbrel. worked well as single agent but caused SEVERE depression .On Xeljanz she had very substantia l sx improvemen t.Also remains on MTX 20mg/wk and doing quite well. She should try to reduce MTX to 15 mg/wk, but return to prior dose if any increase in sxs. Discussed immunosupp ression and lugo virus. 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 Overdue for updated labs. Discussed, scheduled. Make follow up with med 5-6 mo. Long-term drug therapy 184830387 Z79.899 Z79.52 On rodent exterminator MTX; Needs lab monitoring ; Check CBC, LFT's, creat. MVI (for folate).Al so now on LEF again (low dose) Will be going back on Xeljanz and if it is effective, will stop LEF. [id number] Tian Dixon MD Rheumatol [place], [address] [place] [address] 12/15/2020 07:54:59 12/15/2020 16:04:44 Rheumatoid arthritis 77195381 M05.79 Sero +, CCP + RA. In past, controlled with MTX + LEF, but couldn't afford lab monitoring . Enbrel. worked well as single agent but caused SEVERE depression . On Xeljanz she had very substantia l sx improvemen t. States she is tired of dealing with specialty pharmacy and only would take medication she can fill at local pharmacy. Explained her insurance dictates that matter, but all of the Biologics are going to be the same as the Xeljanz. She was annoyed and terminated the call. [id number] Divya Herrera MD Rheumatol [place], [address] [place] [address] 07/03/2021 08:53:23 07/06/2021 06:44:13 Rheumatoid arthritis [id number] M05.79 Sero +, CCP + RA.States she is doing well with Xeljanz, continue for now. In past, controlled with MTX + LEF, but couldn't afford lab monitoring .Enbrel. worked well as single agent but caused SEVERE depression . Check labs for disease activity and medication toxicity (standing orders).Fl u shot and pneumonia shots discussed, patient needs to have them, she stated she will think about it.COVID booster discussed. She previously got J&J.Risk if increased susceptibi lity to infections extensivel y discussed with patient. RTC in 6 months or soone rif needed. Long-term drug therapy 059820070 Z79.899 Z79.52 On xeljanz.Mo nitor labs.[place] extensivel y discussed. Patient to stop xeljanz if fever or any sign of infection, [id number] Divya Herrera MD Rheumatol [facility] [place], [facility] [address] [facility] [place] [address] 12/11/2021 07:56:04 12/14/2021 09:29:52 Rheumatoid arthritis 15071860 M05.79 Seropositi ve rheumatoid arthritis. Mild disease activity in the left hand.Will give a course of prednisone and reassess.I f persistant swelling, therapy needs to be changed. Previous therapies: plaquenil, methotrexa te and leflunomid e. She couldn't afford lab monitoring .Enbrel worked well as single agent but caused SEVERE depression . Update xrays next visit. New Xeljanz black box warning discussed with patient. Patient has a remote history of breast and uterine cancer. She will think about it. Check labs for disease activity and medication toxicity (standing orders).Fl u shot and pneumonia shots discussed, patient hair snot want to have them. Patient got 2 doses of Diego A COVID booster discussed but she does not want to have it.Lisa johansen has the shingles vaccine. RTC in 2 months. Long-term drug therapy [id number] Z79.899 Z79.52 On xeljanz.Mo nitor labs.[place] extensivel y discussed. Patient to stop xeljanz if fever or any sign of infection, [id number] Divya Herrera MD Rheumatol [place], [address] [place] [address] 02/19/2022 07:26:09 02/21/2022 08:19:37 Rheumatoid arthritis 82000973 M05.79 Seropositi ve rheumatoid arthritis. Doing better now after the course of prednisone . Previous therapies: plaquenil, methotrexa te and leflunomid e. She couldn't afford lab monitoring .Enbrel worked well as single agent but caused SEVERE depression . Update xrays next visit as this time patient is concerned about her lower back. New Xeljanz black box warning shaka richey with patient. Patient has a remote history of breast and uterine cancer. She stated that she prefers to stay on it rather then trying Humira or other biological s. Check labs for disease activity and medication toxicity (standing orders).Fl u shot and pneumonia shots discussed, patient does not want to have them. Patient got 2 doses of Diego A COVID booster discussed but she does not want to have it.Lisa johansen had the shingles vaccine. RTC in 2 months. Low back pain [id number] M54.50 With radiation to the LLE.Check imaging.St art Naproxen and cyclobenza arline for one month.Chec k BMP before next visit.No other NSAIDs while on Naproxen.R efer to physical therapy.Wi ll give patient an excuse that she cannot hold boxes heavier than 5 pounds. Long-term drug therapy [id number] Z79.899 Z79.52 On xeljanz.Mo nitor labs.[place] extensivel y discussed. Patient to stop xeljanz if fever or any sign of infection, Black box warning discussed and patient wants to remain on xeljanz. [id number] Divya Herrera MD Rheumatol [place], [address] [place] [address] 03/06/2022 08:43:17 03/07/2022 15:01:38 Backache 726401002 M54.9 Radiograph s showing suspect bilateral L4 pars interartic ularis fractures. On Naproxen and cyclobenza arline.Back brace.Fatemeh ent to see PSS.Will put referral again.Fatemeh ent to see her pcp for stronger pain control if needed. Osteopenia 078598052 M85 .80 Bone densityLum bar SpineT-sco re = -1.9Femora l NeckT-scor e = -2.1 Total HipThe BMD measured at the total left proximal femur is 0.748 g/cm2. T-score = -2.1 1/3 RadiusThe BMD measured at the left one-third radius is 0.684 g/cm2. T-score = -2.2 The estimated 10-year risk for a major osteoporot ic fracture is 11% and for ahip fracture 1.6%. This fracture risk estimate was calculated using FRAXversio n 4.0 and RA as additional clinical risk factors for fracture. Side effects discussed with the patient, including but not limited to: allergic reaction, gastrointe stinal involvemen t (esophagit is, esophageal ulcers, esophageal erosion, heartburn, abdominal pain), musculoske letal pain, osteonecro sis of the jaw, atypical femur fractures. Patient instructed to take the medication first thing in the morning, on an empty stomach, with a full glass of water, and stay up at least 45 minutes after taking the medication . Patient verbalizes understand ing. [id number] Divya Herrera MD Rheumatol [place], [facility] [address] [facility] [place] [address] 05/08/2022 07:49:44 05/16/2022 09:55:58 Rheumatoid arthritis 42307599 M05.79 Seropositi ve rheumatoid arthritis. Doing well. Previous therapies: plaquenil, methotrexa te and leflunomid e. She couldn't afford lab monitoring .Enbrel worked well as single agent but caused SEVERE depression . Update xrays next visit as this time patient is still concerned about her lower back. New Xeljanz black box warning previously discussed with patient. Patient has a remote history of breast and uterine cancer. She stated that she prefers to stay on it rather then trying Humira or other biological s. Check labs for disease activity and medication toxicity (standing orders).Fl u shot and pneumonia shots discussed, patient does not want to have them. Patient got 2 doses of Diego COVID vaccine. COVID booster discussed but she does not want to have it.Lisa johansen had the shingles vaccine. RTC in 6 months or sooner if needed. Backache 902158118 M54.9 Radiograph s showing suspect bilateral L4 pars interartic ularis fractures. Back brace.Fatemeh ent following with PSS.She said she could not get MRI because she is claustroph obic. Osteopenia 519181421 M85 .80 Low FRAX scores but patient had vertebral fractures Calcium and vitamin D.Fosamax. Bone densityLum bar SpineT-sco re = -1.9Femora l NeckT-scor e = -2.1 Total HipThe BMD measured at the total left proximal femur is 0.748 g/cm2. T-score = -2.1 1/3 RadiusThe BMD measured at the left one-third radius is 0.684 g/cm2. T-score = -2.2 The estimated 10-year risk for a major osteoporot ic fracture is 11% and for ahip fracture 1.6%. This fracture risk estimate was calculated using FRAXversio n 4.0 and RA as additional clinical risk factors for fracture. [id number] MARKIE MEYERS, PT Physical Therapy, [address] [address] 04/11/2022 08:41:06 04/12/2022 11:38:17 Lumbar spondylolisthesis [id number] 64528 M43.16 Seropositi ve rheumatoid arthritis [id number] M05.9 [id number] MARKIE MEYERS, PT Physical Therapy, [address] [address] 04/15/2022 16:23:45 04/16/2022 13:33:10 Lumbar spondylolisthesis [id number] 31759 M43.16 Seropositi ve rheumatoid arthritis [id number] M05.9 [id number] MARKIE MEYERS, PT Physical Therapy, [address] [place] [address] 04/22/2022 14:04:23 04/23/2022 08:00:41 Lumbar spondylolisthesis [id number] 37874 M43.16 Seropositi ve rheumatoid arthritis 130395817 M05.9 [id number] MARKIE MEYERS, PT Physical Therapy, [address] [address] 05/20/2022 08:24:11 05/20/2022 12:08:57 Lumbar spondylolisthesis [id number] 97903 M43.16 Seropositi ve rheumatoid arthritis 702680782 M05.9 [id number] MARKIE MEYERS, PT Physical Therapy, [address] [address] 05/23/2022 07:59:51 05/23/2022 08:52:18 Lumbar spondylolisthesis 1985496564 34052 M43.16 Seropositi ve rheumatoid arthritis 384159558 M05.9 [id number] MARKIE MEYERS, PT Physical Therapy, [address] [address] 05/27/2022 08:00:19 05/27/2022 11:53:44 Lumbar spondylolisthesis [id number] 28225 M43.16 Seropositi ve rheumatoid arthritis 087576285 M05.9 [id number] MARKIE MEYERS, PT Physical Therapy, [address] [address] 05/30/2022 08:55:29 05/30/2022 10:52:15 Lumbar spondylolisthesis [id number] 72262 M43.16 Seropositi ve rheumatoid arthritis 507709075 M05.9 [id number] MARKIE MEYERS, PT Physical Therapy, [address] [address] 06/03/2022 08:00:37 06/03/2022 08:51:33 Lumbar spondylolisthesis [id number] M43.16 Seropositi ve rheumatoid arthritis [id number] M05.9 Health Concerns Section Related Observation LastModified by Organization Detai ls LastModified Time None Recorded Concern Status LastModified by Organization Details LastModified Time None Recorded Advance Directives Directive None Recorded Payers Encounter Date Sequence Insurance Name Policy Number Policy Andre Covered Member ID Andre Member ID Guarantor Name 05/20/2022 1 [employer]: ALYSA OMALLEY (PPO) [id number] Jose Medina [id number] [facility]/23/2022 1 [employer]: AN[place] [employer] (PPO) [id number] F Noreen Pendletonip [id number] [facility] 05/27/2022 1 [employer] [employer] [place]) [id number] F Noreen [employer]hip [id number] [facility] 05/30/2022 1 [employer] [employer] [place]) [id number] F Noreen P[employer]letonship [id number] [address] N[address] 06/03/2022 1 [place] [place]) [id number] F Noreen Wu [place] [id number] [facility] Notes Date Note Type Note Provider Name and Address Organization Details Recorded Time 2 text/html PT Initial Eval*Reported bypatient.Associated Symptoms:no nausea; no vomiting; no fever; no chills; no excessive fatigue; no confusion; no forgetfulness; no dizziness; no lightheadedness; no change in weight; no numbness; no tingling; no changes in urinary habits; no changes in bowel habits; no loss of pleasure or interest in activities; no feeling down or depressed Had an MRI on low back and based on this and xray, PSS[facility] provider wants her to see a surgeon - not sure exactly for what, but remembers L4-5 level was mentioned. Was told condition would progress and be harder to recover from if she waited. Having more pain than success with supine bridge, and notices intake:latex sensitivity - rash Pt is a 61 yo f referred by physiatry clinic for low back pain in context of long history of RA and radiographs showing grade 1 anterolisthesis of L4 on L5 with associated facet hypertrophy, with the reading radiologist suspecting bilateral L4 pars interarticularis fractures. Onset early January 2022 with back pain and radiating pain/numbness in L LE while lifting heavy bags/boxes from floor to shoulder level at work. Pt reports pain is consistent in R PSIS region, L PSIS region also hurts will improve with medication, and has consistent numbness in L LE from buttock down posterolateral thigh to posterolateral-anterom edial calf. This also started in her R LE while at work on March 07, 2022. Order from spine specialty clinic notes spondylolisthesis of L4-5, spondylosis lower lumbar area, mild greater trochanteric bursitis. 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 No better with chiropractic, aspirin, ibuprofen. 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 intake:latex sensitivity - rash Pt is a 61 yo f referred by physiatry clinic for low back pain in context of long history of RA and radiographs showing grade 1 anterolisthesis of L4 on L5 with associated facet hypertrophy, with the reading radiologist suspecting bilateral L4 pars interarticularis fractures. Onset early January 2022 with back pain and radiating pain/numbness in L LE while lifting heavy bags/boxes from floor to shoulder level at work. Pt reports pain is consistent in R PSIS region, L PSIS region also hurts will improve with medication, and has consistent numbness in L LE from buttock down posterolateral thigh to posterolateral-anterom edial calf. This also started in her R LE while at work on March 07, 2022. Order from spine specialty clinic notes spondylolisthesis of L4-5, spondylosis lower lumbar area, mild greater trochanteric bursitis. 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 No better with chiropractic, aspirin, ibuprofen. 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 Notes cement floors are not helping.Recreation: walking outside, taking care of chickens, camping (using a camper) DAI MEYERS PT [address] [place], [phone], [facility] 05/23/2022 08:34:51 2 text/html Dog tripped her with its lead. May have hurt her R shoulder, neck and low back are sore. No new tingling, numbness, weakness. Just feels like it's bruised a little bit. Did get to practice what we worked on for body mechanics at work last visit and found it helped with intensity of pain after work. intake:latex sensitivity - rash Pt is a 61 yo f referred by physiatry clinic for low back pain in context of long history of RA and radiographs showing grade 1 anterolisthesis of L4 on L5 with associated facet hypertrophy, with the reading radiologist suspecting bilateral L4 pars interarticularis fractures. Onset early January 2022 with back pain and radiating pain/numbness in L LE while lifting heavy bags/boxes from floor to shoulder level at work. Pt reports pain is consistent in R PSIS region, L PSIS region also hurts will improve with medication, and has consistent numbness in L LE from buttock down posterolateral thigh to posterolateral-anterom edial calf. This also started in her R LE while at work on March 07, 2022. Order from spine specialty clinic notes spondylolisthesis of L4-5, spondylosis lower lumbar area, mild greater trochanteric bursitis. 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 No better with chiropractic, aspirin, ibuprofen. 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 Notes cement floors are not helping.Recreation: walking outside, taking care of chickens, camping (using a camper) DAI MEYERS, PT [address] [place] [address], [phone], [facility] 05/27/2022 08:27:50 2 text/html Feeling much better since last visit. intake:latex sensitivity - rash Pt is a 61 yo f referred by physiatry clinic for low back pain in context of long history of RA and radiographs showing grade 1 anterolisthesis of L4 on L5 with associated facet hypertrophy, with the reading radiologist suspecting bilateral L4 pars interarticularis fractures. Onset early January 2022 with back pain and radiating pain/numbness in L LE while lifting heavy bags/boxes from floor to shoulder level at work. Pt reports pain is consistent in R PSIS region, L PSIS region also hurts will improve with medication, and has consistent numbness in L LE from buttock down posterolateral thigh to posterolateral-anterom edial calf. This also started in her R LE while at work on March 07, 2022. Order from spine specialty clinic notes spondylolisthesis of L4-5, spondylosis lower lumbar area, mild greater trochanteric bursitis. 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 No better with chiropractic, aspirin, ibuprofen. 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 Notes cement floors are not helping.Recreation: walking outside, taking care of chickens, camping (using a camper) DAI MEYERS, PT [address] [place] [address], [phone], [facility] 05/30/2022 09:45:04 2 text/html Has been practicing hip hinging without lapsing into anterior pelvic tilt and feels she's continuing to do fairly well. I still mess up at times. Nawaf NESS has been tingling more (more intensely, farther down her leg) with walking on uneven surface e.g. when walking dog and with waking up when she's too much rotated through her spine. Plans to get a body pillow to help support limbs and prevent this. intake:latex sensitivity - rash Pt is a 61 yo f referred by physiatry clinic for low back pain in context of long history of RA and radiographs showing grade 1 anterolisthesis of L4 on L5 with associated facet hypertrophy, with the reading radiologist suspecting bilateral L4 pars interarticularis fractures. Onset early January 2022 with back pain and radiating pain/numbness in L LE while lifting heavy bags/boxes from floor to shoulder level at work. Pt reports pain is consistent in R PSIS region, L PSIS region also hurts will improve with medication, and has consistent numbness in L LE from buttock down posterolateral thigh to posterolateral-anterom edial calf. This also started in her R LE while at work on March 07, 2022. Order from spine specialty clinic notes spondylolisthesis of L4-5, spondylosis lower lumbar area, mild greater trochanteric bursitis. 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 No better with chiropractic, aspirin, ibuprofen. 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 Notes cement floors are not helping.Recreation: walking outside, taking care of chickens, camping (using a camper) DAI MEYERS, PT [address] [place], [phone], [facility] 06/03/2022 08:33:08 OBGyn Episode No OBEpisode recorded.
== END 2025-01-04 08:46 | disposition home or self-care (01) ==
LOC: HO.RHE 08:05
PROVIDERS: PCP Family Medicine; Visit Provider Student in an Organized Health Care Education/Training Program
DX: M05.79 Rheumatoid arthritis with rheumatoid factor of multiple sites without organ or systems involvement (principal); M17.0 Bilateral primary osteoarthritis of knee; Z79.622 Long term (current) use of Janus kinase inhibitor
CPT/HCPCS: 99214

== ENCOUNTER → 2025-01-04 08:05 | Outpatient (BNVA) | payer BC, SELFPAY | PROVIDERS: PCP Family Medicine; Visit Provider Student in an Organized Health Care Education/Training Program ==

== ENCOUNTER 2025-08-23 08:55 | Outpatient (AMB) | payer BC, SELFPAY ==
--- NOTE | 2025-08-23 09:03 | A.OFFVIS_ITS ---
Vital Signs 08/23/25 09:11 Height 5 ft 4 in Weight 221 lb 9.033 oz BMI 38.0 BP 140/100 H Blood Pressure Location Lt brachial Position Sitting Pulse 92 Pulse Source Pulse Oximeter Pulse Oximetry (%) 97 Oxygen Delivery Method Room Air Intake Visit Reasons: RA Intake Note: Patient presents today for RA follow up and test results. Ceramic Coater Machine Required: No Information Interpreted: non-clinical & clinical Accompanied by: Self / Same As Patient Allergies etanercept (From Enbrel) Adverse Reaction (Intermediate, Verified 08/23/25 09:10) Depression Latex, Natural Rubber Adverse Reaction (Intermediate, Verified 08/23/25 09:10) Rash Medication List - Last Reconciled 08/23/25 by Kinga Mcgill MD acetaminophen (Tylenol Extra Strength) 500 mg PO Q6H PRN [compression stockings As directed] Xeljanz (tofacitinib) 5 mg PO DAILY NS HPI Comments Details: Patient is a 64-year-old female with preDM, hypertension, Lumbar degenerative disease s/p surgery, polyarticular OA and seropositive rheumatoid arthritis here today for follow up Interval History: Patient last seen 01/04/25 with me - On Xeljanz 5mg daily - She reports chronic pain in her back and knees for which she takes Tylenol - Hands improved on the short course of increase in Xeljanz Today - On Xeljanz 5mg daily - Still with chronic knee and back pain - Knee pain slightly increased due to the cold weather - No prolonged AM stiffness in the hands Social Hx - 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 Mtx associated with significant fatigue Relapsed in 10/2015 SSZ added without improvement LEF + MTX 2016 partially effective Enbrel 05/2017 effective. Stopped due to severe depression 2017 Xeljanz 07/2018 effective Initial history: This is a 62-year-old female with a past medical history of seropositive rheumatoid arthritis who presents as a new patient. Her previous compress trucker left the practice. Patient had been on Xeljanz since 2017 with good control of her RA. She was last prescribed Xeljanz about 10 months ago. Patient did not take Xeljanz since November of 2022 and had been using only 1 tablet daily for a few months before that. She is having recurring pain swelling and stiffness in her hands and wrists as well as her ankles. She has history of right breast cancer diagnosed 1999, she had a right mastectomy followed by chemotherapy, she also took another medication for 5 years. As far as she knows she is breast cancer free. She gets regular mammograms and they have been unremarkable. She states that she has had a right upper extremity deformity since do to a injury Current Rheumatology Medication(s): Xeljanz 5mg daily [facility] Medical History Disorder of rotator cuff Sleep disorder Cervical radiculopathy Localized primary osteoarthritis Inflammatory polyarthropathy Primary malignant neoplasm of female breast Anemia Surgical History H/O mastectomy History of lumbar fusion Family History Mother Arthritis Diabetes Brother Rheumatoid arthritis Coronary arteriosclerosis Father Prostate cancer Sister Cellulitis Social History Household Members: None Alcohol intake: current Alcohol intake frequency: holidays/special occasions only Patient Tobacco Use Status: Never used Tobacco Current occupational status: employed 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 Review of Systems Narrative Review of Systems Constitutional: Denies fever, chills, weight loss ENT: Denies vision changes, eye pain or eye redness, dental caries, dry mouth GI: Denies nausea, vomiting, diarrhea, abdominal pain, change in BM Pulm: Denies SOB, ZAPATA, hemoptysis, wheezing Cards: Denies chest pain, palpitations Skin: Denies Raynaud's, rash, nail changes, photosensitivity, ETHYLBENZENE CRACKING SUPERVISOR: Denies headaches, weakness, paresthesias, recurrent falls MSK: as per HPI All other systems reviewed and are unremarkable except noted above Physical Exam Exam Exam: Vital signs reviewed Physical Examination CONSTITUITIONAL Patient alert and cooperative. Well appearing and in no apparent painful distress MSK Hands * Right Hand: Able to make a fist. No swelling or tenderness to palpation of the MCPs, PIPs or DIPs. * Left Hand: Able to make a fist. No swelling or tenderness to palpation of the MCPs, PIPs or DIPs. * Herbedens nodes noted bilaterally * Synovial hypertrophy palpated but no TTP Wrists * Right Wrist: Full ROM to flexion and extension. No swelling or TTP * Left Wrist: Full ROM to flexion and extension. No swelling or TTP Elbows * Right Elbow: Decreased ROM to extension (unable to straighten past about 60-70 degrees). No swelling or TTP. No TTP of the medial epicondyle. No TTP of the lateral epicondyle * Left Elbow: Full ROM. No swelling or TTP. No TTP of the medial epicondyle. No TTP of the lateral epicondyle Shoulders * Right shoulder: Decreased ROM. No swelling noted. No TTP of the AC joint. No TTP of the subacromial bursa. No TTP of the posterior shoulder * Left shoulder: Full ROM. No swelling noted. No TTP of the AC joint. No TTP of the subacromial bursa. No TTP of the posterior shoulder Knees * Right knee: No swelling noted. No TTP of the knee joint line. No TTP of pes anserine bursa * Left knee: No swelling noted. No TTP of the knee joint line. No TTP of pes anserine bursa. * Crepitations felt bilaterally Ankles * Right ankle: Good ankle dorsiflexion and plantar flexion. No swelling. No TTP of the ankle joint * Left ankle: Good ankle dorsiflexion and plantar flexion. No swelling. No TTP of the ankle joint Feet * Right foot: Negative squeeze test * Left foot: Negative squeeze test Tender points? * No tenderness to palpation of the bilateral trapezius, supraspinatus, anterior costochondral junctions, bilateral suboccipital muscle insertions SKIN No rashes Vital Signs: Last Vital Signs Pulse 92 08/23/25 09:11 BP 140/100 H 08/23/25 09:11 Pulse Ox 97 08/23/25 09:11 Oxygen Delivery Method Room Air 08/23/25 09:11 BMI result Body Mass Index 38.0 Results Reviewed Results Reviewed: 01/04/2025 [facility] 08/18/2025 [facility] WBC 6.5 5.9 Hb 12.9 13.1 Plt 461 396 BUN 9 9 Cr 0.47 0.46 eGFR 108 108 AST 20 24 ALT 17 22 ESR 26 16 CRP <1 <3 Hep B Negative Hep C Negative T spot Negative Assessment & Plan Assessment & Plan (1) Seropositive rheumatoid arthritis: Comment: RF + CCP + dx 2011 MTX + HCQ 2011 Relapsed in 10/2015 SSZ added without improvement LEF + MTX 2016 partially effective Enbrel 05/2017 effective. Stopped due to severe depression 2017 Xeljanz 07/2018 effective Code(s): M05.9 - Rheumatoid arthritis with rheumatoid factor, unspecified Category: Medical Plan: #Seropositive RA Patient is a 64-year-old female with seropositive rheumatoid arthritis here today for follow up. Currently in remission. 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 (current) use of Janus kinase inhibitor Plan: #Long-term Use of JACQUELINE inhibitor : Xeljanz Discussed with patient the benefits and risks of JACQUELINE inhibitors for the management of the rheumatic condition Benefits include reduce pain, maintenance of remission and reduction of flares Risks include thromboembolic events, skin cancer and nonmelanoma skin cancers, other forms of cancer, cardiovascular alcohol and mortality Advise patient that they are to hold the medication and for up to 1 week after a febrile illness or an open skin wound Plan I spent 25 minutes reviewing the record and labs, taking a history, examining the patient, discussing the treatment plan, ordering diagnostic work up and documenting in the medical record Orders: Orders Complete Blood Count Auto Diff 6 Months Z79.899 - Other correction (current) drug therapy Comprehensive Met. Panel 6 Months Z79.899 - Other terminal block assembler (current) drug ther apy C Reactive Protein 6 Months Z79.899 - Other terminal block assembler (current) drug therapy Erythrocyte Sedimentation Rate 6 Months Z79.899 - Other correction (current) drug therapy Medications: Refilled Xeljanz (tofacitinib) 5 mg PO DAILY 30 tabs 6RF NS M05.9 - Rheumatoid arthritis with rheumatoid factor, unspecified Coding Level of Care Code Est Pt Level 3 (09660) Add On Problem Visit Only Diagnoses Seropositive rheumatoid arthritis M05.9 Primary osteoarthritis of both knees M17.0 Long-term current use of tofacitinib Z79.622
[2025-08-23 09:11] VITALS: BP 140/100; PULSE 92; O2SAT 97; BMI 38.0
== END 2025-08-23 09:33 | disposition home or self-care (01) ==
LOC: HO.RHES 08:55
PROVIDERS: PCP Family Medicine; Visit Provider Student in an Organized Health Care Education/Training Program
DX: M05.9 Rheumatoid arthritis with rheumatoid factor, unspecified (principal); M17.0 Bilateral primary osteoarthritis of knee; Z79.622 Long term (current) use of Janus kinase inhibitor
CPT/HCPCS: 99213